=== PATIENT | female | born 1950 | race Caucasian/White ===

== ENCOUNTER 2016-12-23 11:29 | Emergency (ER) | payer OTHER ==
[2016-12-23 11:53] VITALS: BP 141/66; PULSE 69; TEMP 97.8; BMI 28.9
[2016-12-23 12:24] LABS: URINE APPEARANCE Clear; URINE BILIRUBIN Negative (NEGATIVE); URINE BLOOD Negative (NEGATIVE); URINE GLUCOSE (UA) 2+ (NEGATIVE); URINE KETONE Negative (NEGATIVE); URINE LEUK ESTERASE Trace (NEGATIVE); URINE NITRITE Negative (NEGATIVE); URINE PROTEIN Negative (NEGATIVE); URINE UROBILINOGEN 0.2 E.U/dl (0.2-1.0)
[2016-12-23 12:25] LABS: URINE COLOR YELLOW
--- NOTE | 2016-12-23 12:47 | PDOC ---
History of Present Illness - General Chief Complaint: Vaginal Sxs Stated Complaint: VAGINAL PAIN Time Seen by Provider: 12/23/16 12:28 - History of Present Illness Initial Comments: 12/23/16 13:09 Complaint: Burning in the vagina History of present illness: Patient is an elderly female who speaks only Montserratian , communication was through her son, assisted by telegraph office telephone clerk in the emergency room. She is complaining of burning in the vaginal area, constant, not related to urination, with no vaginal bleeding, slight amount of whitish discharge. Review of systems: Denies abdominal or pelvic pain, chest pain, shortness of breath, nausea, vomiting, constipation, diarrhea, fever or chills, visual or focal neurologic symptoms, unsteadiness of gait. Past medical history: Total abdominal hysterectomy approximately 4 months ago, family is uncertain of the reasons for the surgery, without apparent complication. Insulin-dependent diabetes without serious prior complications, elevated cholesterol, GERD. Patient has an ELECTRONICS SUPERVISOR physician whom she sees and with whom she could not obtain an appointment Social history: Patient lives with family, cares for herself, physically active and without disability, no tobacco alcohol or nonprescription drugs Family history: Reviewed and noncontributory including early coronary artery disease, cancer Physical exam: Alert and oriented 3, well-developed well-nourished, no acute distress, cheerful and cooperative Afebrile, vital signs normal HEENT clear Neck supple without bruit mass or nodes Chest clear CV regular without murmur or gallop Abdomen nondistended, bowel sounds normal. Soft without mass tenderness organomegaly. No pelvic tenderness to deep palpation. Vaginal exam: External genitalia normal. Erythema of the vulva is present. The vulva and vaginal mucosa is dry and irritated without specific lesions. There is moderate white discharge suggestive of jesika. No cervical os is present. There are no discrete lesions or mass. Bimanual examination shows no mass or tenderness. Uterus/ovaries were not palpable. 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 Close follow-up with ELECTRONICS SUPERVISOR physician. Patient fully ambulatory and in no significant pain or other distress upon discharge with her family to follow-up as directed Past History - Past Medical History Allergies/Adverse Reactions: Allergies Allergy/AdvReac Type Severity Reaction Status Date / Time No Known Allergies Allergy Verified 12/23/16 11:53 Home Medications: Ambulatory Orders Metformin HCl 500 mg PO BID 06/07/15 Pravastatin Sodium [Pravachol -] 80 mg PO HS 06/07/15 Sertraline HCl [Zoloft -] 25 mg PO DAILY 06/07/15 Vitamin B Complex 1 each PO DAILY 06/07/15 Insulin Detemir [Levemir Flextouch] 20 unit SQ DAILY 01/14/16 Aspirin [Aspirin EC] 81 mg PO DAILY 04/21/16 Calcium Carbonate/Vitamin D3 [Calcium 500 + Vit D Caplet] 1 each PO DAILY Cholecalciferol (Vitamin D3) [Vitamin D3] 2,000 unit PO DAILY 04/21/16 Omeprazole [Prilosec] 40 mg PO DAILY 04/21/16 Estrogens,Conjugated [Premarin Vaginal Cream -] 1 applic VG ASDIR #1 tube Terconazole [Terazol 7] 1 applic VG HS #1 cream.appl 12/23/16 Diabetes: Yes (insulin-dependent) HTN: Yes Hypercholesterolemia: Yes Psychiatric Problems: Yes (DEPRESSION) - Surgical History Orthopedic Surgery: Yes (B/L TOTAL KNEE REPLACEMENT) - Reproductive History Is Patient Now?: No - Immunization History Td Vaccination: Yes Immunization Up to Date: No - Psycho/Social/Smoking Cessation Hx Anxiety: No Suicidal Ideation: No Smoking Status: No Smoking History: Never smoked Have you smoked in the past 12 months: No Number of Cigarettes Smoked Daily: 0 Information on smoking cessation initiated: No Hx Alcohol Use: No Drug/Substance Use Hx: No Substance Use Type: None Hx Substance Use Treatment: No Abd/GI Specific PMHX - Complaint Specific PMHX GERD: Yes GI Ulcer Disease: No *Physical Exam - Vital Signs Last Vital Signs Temp Pulse Resp BP Pulse Ox 97.8 F 69 20 141/66 100 12/23/16 11:30 12/23/16 11:30 12/23/16 11:30 12/23/16 11:30 12/23/16 11:30 ED Treatment Course - ADDITIONAL ORDERS Additional order review: Laboratory Results 12/23/16 12:19 Urine Color Yellow Urine Appearance Clear Urine pH 7.0 Ur Specific [place] 1.015 Urine Protein Negative Urine Glucose (UA) 2+ H Urine Ketones Negative Urine Blood Negative Urine Nitrite Negative Urine Bilirubin Negative Urine Urobilinogen 0.2 e.u/dl Ur Leukocyte Esterase Trace *DC/Admit/Observation/Transfer Diagnosis at time of Disposition: Vaginitis, atrophic, Vaginitis due to Jesika - Discharge Dispostion Disposition: HOME Condition at time of disposition: Stable Admit: No - Prescriptions Prescriptions: Estrogens,Conjugated [Premarin Vaginal Cream -] 1 applic VG ASDIR #1 tube Terconazole [Terazol 7] 1 applic VG HS #1 cream.appl - Referrals Referrals: Dexter Ayala MD [Staff Physician] - 1 week - Patient Instructions Printed Discharge Instructions: Atrophic Vaginitis Additional Instructions: you must see plug overwrap machine tender doctor to discuss and monitor hormone treatment to avoid possible serious side effects including cancer
== END 2016-12-23 13:34 | disposition home or self-care (01) ==
LOC: FER 11:29
DX: N95.2 Postmenopausal atrophic vaginitis (principal); B37.3 Candidiasis of vulva and vagina; I10 Essential (primary) hypertension; E11.9 Type 2 diabetes mellitus without complications; Z79.4 Long term (current) use of insulin; E78.00 Pure hypercholesterolemia, unspecified; F32.9 Major depressive disorder, single episode, unspecified
CPT/HCPCS: 81003; 99282-25

== ENCOUNTER 2017-03-14 23:24 | Emergency (ER) | payer OTHER ==
--- NOTE | 2017-03-14 23:31 | PDOC ---
History of Present Illness - General Stated Complaint: vaginal bleeding x1 day Time Seen by Provider: 03/14/17 23:30 History Source: Patient Exam Limitations: No Limitations - History of Present Illness Initial Comments: 03/14/17 23:49 This is a 66-year-old female comes in with her family for evaluation of no vaginal bleeding 1 day. Patient has status post hysterectomy 7 months ago. Patient was told by her senior outside sales representative she needs to use a hormonal cream vaginally because her vaginal tissues or so dry and friable. Patient had been putting the cream on a he's a paper and trying to inserted into her vagina and as a result she noticed some vaginal bleeding. Patient said that the opening to the vaginal area is painful. She denies any fevers or chills. She denies any bad odor. She denies any other symptoms. PAST MEDICAL HISTORY: no significant history PAST SURGICAL HISTORY: no significant history FAMILY HISTORY: no pertinant history SOCIAL HISTORY: Pt lives with family and is employed. MEDICATIONS: reviewed ALLERGIES: As per nursing notes Review of Systems General: No fevers or chills, no weakness, no weight loss HEENT: No change in vision. No sore throat,. No ear pain CardioVascular: No chest pain or shortness of breath Respiratory:No cough, or wheezing. Gastrointestinal: no nausea, vomitting, diarrhea or constipation, No rectal bleeding Genitourinary: No dysuria, hematuria, or frequency Musculoskeletal: No joint or muscle pain or swelling Neurologic: No headache, vertigo, dizziness or loss of consciousness Psychiatric: nor depression Skin: No rashes or easy bruising Endocrine: no increased thirst or abnormal weight change Allergic: no skin or latex allergy All other systems reviewed and normal Exam: General: Well-nourished well-developed individual, no acute distress currently back abdomen: Soft nontender normal bowel sounds exam: There is excoriations and abrasions of the introitus to the vaginal vault. There is a small amount of bleeding from the abrasions. Extremities: Warm, dry, no cyanosis, clubbing, or edema Skin: No rashes Neuro: Alert and oriented x3, nonfocal exam, grossly intact, normal gait Psych: Normal mood and affect Assessment and plan: This is a 66-year-old female who comes in complaining of vaginal bleeding 1 day. Patient has been using a rough piece of paper to try to insert some hormonal cream into her vaginal area. The result of this is that patient has created vaginal trauma with some abrasions and bleeding of the introitus area. Patient was advised to use a glove to insert the vaginal cream and to be extra gentle as her vaginal tissues are very fragile and friable. Patient will follow-up with her senior outside sales representative if not improved in 3-4 days. Past History - Past Medical History Allergies/Adverse Reactions: Allergies Allergy/AdvReac Type Severity Reaction Status Date / Time No Known Allergies Allergy Verified 12/23/16 11:53 Home Medications: Ambulatory Orders Metformin HCl 500 mg PO BID 06/07/15 Pravastatin Sodium [Pravachol -] 80 mg PO HS 06/07/15 Sertraline HCl [Zoloft -] 25 mg PO DAILY 06/07/15 Insulin Detemir [Levemir Flextouch] 20 unit SQ DAILY 01/14/16 Aspirin [Aspirin EC] 81 mg PO DAILY 04/21/16 Calcium Carbonate/Vitamin D3 [Calcium 500 + Vit D Caplet] 1 each PO DAILY Omeprazole [Prilosec] 40 mg PO DAILY 04/21/16 Estrogens,Conjugated [Premarin Vaginal Cream -] 1 applic VG ASDIR #1 tube Solifenacin Succinate [Vesicare -] 5 mg PO DAILY 03/14/17 Diabetes: Yes (insulin-dependent) HTN: Yes Hypercholesterolemia: Yes Psychiatric Problems: Yes (DEPRESSION) - Surgical History Orthopedic Surgery: Yes (B/L TOTAL KNEE REPLACEMENT) - Immunization History Td Vaccination: Yes Immunization Up to Date: No - Psycho/Social/Smoking Cessation Hx Anxiety: No Suicidal Ideation: No Smoking Status: No Smoking History: Never smoked Have you smoked in the past 12 months: No Number of Cigarettes Smoked Daily: 0 Hx Alcohol Use: No Drug/Substance Use Hx: No Substance Use Type: None Hx Substance Use Treatment: No Abd/GI Specific PMHX - Complaint Specific PMHX GERD: Yes GI Ulcer Disease: No *DC/Admit/Observation/Transfer Diagnosis at time of Disposition: Vaginitis, atrophic Vaginal abrasion Qualifiers: Encounter type: initial encounter Qualified Code(s): S30.814A - Abrasion of vagina and vulva, initial encounter - Discharge Dispostion Disposition: HOME Admit: No - Patient Instructions Additional Instructions: Use a glove on your finger when you are putting in the vaginal cream do not use a paper or anything that is rough. If you find that the cream is irritating to the area where the abrasions are stop using the cream for 3-4 days to allow that area to heal and then restart the cream. Follow-up with your OB in 4-5 days if not improved. Return to the emergency department immediately with ANY new, persistent or worsening symptoms. Continue any medications as previously prescribed by your physician. You should follow up with your primary doctor as soon as possible regarding today's emergency department visit. . Please make sure your doctor reviews the results of your emergency evaluation. Thank you for coming to the Emergency Department today for your care. It was a pleasure to see you today. Please note that your evaluation is INCOMPLETE until you follow-up with your doctor.
[2017-03-14 23:36] VITALS: BP 137/67; PULSE 68; TEMP 98.6; BMI 28.1
== END 2017-03-14 23:57 | disposition home or self-care (01) ==
LOC: FER 23:24
DX: N95.2 Postmenopausal atrophic vaginitis (principal); S30.814A Abrasion of vagina and vulva, initial encounter; E11.9 Type 2 diabetes mellitus without complications; I10 Essential (primary) hypertension; E78.00 Pure hypercholesterolemia, unspecified; F32.9 Major depressive disorder, single episode, unspecified; Z96.653 Presence of artificial knee joint, bilateral; Z79.4 Long term (current) use of insulin
CPT/HCPCS: 99282-25

== ENCOUNTER 2017-08-25 00:51 | Emergency (ER) | payer OTHER ==
[2017-08-25 01:02] VITALS: BP 143/79; PULSE 70; TEMP 98.1; BMI 28.5
[2017-08-25] MEDS ORDERED: MECLIZINE HCL 25 MG TABLET (FP) PO ONE (02:12)
--- NOTE | 2017-08-25 02:13 | PDOC ---
History of Present Illness - General Chief Complaint: Pain, Acute Stated Complaint: NAUSEA, HEADACHE X 2 DAYS Time Seen by Provider: 08/25/17 00:59 - History of Present Illness Initial Comments: This 66-year-old woman, Fijian speaking only with a history of DM/ hyperlipidemia/hypertension presents with her son (implant polisher) having a 2 day history of intermittent vertigo/nausea/generalized headache. Patient states that there is some increase in vertigo with change in position of her head. No previous history of these symptoms. She has not taken any medication for her headache. She denies any trauma to her head prior to onset of symptoms. She has not had any fever/chills or upper respiratory symptoms recently. Although the patient has not vomited, her appetite is decreased secondary to the nausea she feels with a head spinning sensation. No history of CVA or TIA. She is currently taking all her medications including her aspirin 81 mg, diabetes medications and antihypertensive meds. She has not had any difficulty finding words/slurred speech; no difficulty with balance or extremity weakness. No facial weakness reported. Past History - Past Medical History Allergies/Adverse Reactions: Allergies Allergy/AdvReac Type Severity Reaction Status Date / Time No Known Allergies Allergy Verified 08/25/17 00:52 Home Medications: Ambulatory Orders Aspirin [ASA -] 81 mg PO DAILY 08/25/17 Calcium 500 mg PO DAILY 08/25/17 Linaclotide [Linzess] 145 mcg PO DAILY 08/25/17 Lisinopril 5 mg PO DAILY 08/25/17 Meclizine HCl [Antivert -] 25 mg PO TID PRN #10 tablet 08/25/17 Metformin HCl 850 mg PO BID 08/25/17 Omeprazole 40 mg PO DAILY 08/25/17 Pravastatin Sodium [Pravachol (Nf)] 40 mg PO HS 08/25/17 Sitagliptin Phosphate [Januvia] 100 mg PO DAILY 08/25/17 COPD: No Diabetes: Yes (insulin-dependent) HTN: Yes Hypercholesterolemia: Yes Psychiatric Problems: Yes (DEPRESSION) - Surgical History Orthopedic Surgery: Yes (B/L TOTAL KNEE REPLACEMENT) - Immunization History Td Vaccination: Yes Immunization Up to Date: No - Suicide/Smoking/Psychosocial Hx Smoking Status: No Smoking History: Never smoked Have you smoked in the past 12 months: No Number of Cigarettes Smoked Daily: 0 Information on smoking cessation initiated: No Hx Alcohol Use: No Drug/Substance Use Hx: No Substance Use Type: None Hx Substance Use Treatment: No Neuro Specific PMHX - Complaint Specific PMHX Glaucoma: No Review of Systems - Review of Systems Able to Perform ROS?: Yes Comments:: 12 point review of systems is negative except for what is noted in the history of present illness *Physical Exam - Vital Signs Last Vital Signs Temp Pulse Resp BP Pulse Ox 98.1 F 70 16 143/79 99 08/25/17 00:59 08/25/17 00:59 08/25/17 00:59 08/25/17 00:59 08/25/17 00:59 - Physical Exam Comments: GENERAL: Elderly female, speaking clearly to her family in Fijian, in no acute distress HEAD: Normal with no signs of trauma. EYES: PERRLA, pupils 3 mm equal and reactive to light EOMI, sclera anicteric, conjunctiva clear. ENT: Ears normal, nares patent, oropharynx clear without exudates. Moist mucous membranes. NECK: Normal range of motion, supple without lymphadenopathy, JVD, or masses. LUNGS: Breath sounds equal, clear to auscultation bilaterally. No wheezes, and no crackles. HEART:Regular rate and rhythm, normal S1 and S2 without murmur, rub or gallop. ABDOMEN:.normal bowel sounds No guarding,tenderness or rebound.No masses No distention. EXTREMITIES: Normal range of motion, no edema. No clubbing or cyanosis. No erythema, or tenderness. NEUROLOGICAL: Cranial nerves II through XII grossly intact. Normal speech. No pronator drift. Gait normal MUSCULOSKELETAL: Back non-tender to palpation, no CVA tenderness SKIN: Warm, Dry, normal turgor, no rashes or lesions noted. Progress Note - Progress Note Progress Note: Although no clear abnormal nystagmus present, meclizine 25 mg will be administered because of the patient's history of increase in vertigo with change in position of her head. Patient reports some relief in headache and vertigo after meclizine. Medical Decision Making - Medical Decision Making Noncontrast head CT performed to evaluate for acute intracranial process; patient is a risk for cerebrovascular disease because of her history of hypertension/diabetes and hyperlipidemia. Noncontrast head CT shows no acute bleed/mass or CVA. Patient feels significantly better and is eager to be discharged. Although this may be posterior circulation related vertigo, she is currently taking aspirin 81 mg daily. She should continue to take this medication and she has been advised to do that. She should also continue take all her other medications as prescribed. Meclizine 25 mg up to 3 times a day can be taken as needed for the vertigo. She should return to emergency room if she has persistent, severe vertigo or develops vomiting. Meanwhile, she should plan on following up with her general medical doctor within the next 1-2 days *DC/Admit/Observation/Transfer Diagnosis at time of Disposition: Benign paroxysmal positional vertigo Qualifiers: Laterality: unspecified laterality Qualified Code(s): H81.10 - Benign paroxysmal vertigo, unspecified ear - Discharge Dispostion Disposition: HOME Condition at time of disposition: Stable - Prescriptions Prescriptions: Meclizine HCl [Antivert -] 25 mg PO TID PRN #10 tablet PRN Reason: Vertigo - Referrals - Patient Instructions Printed Discharge Instructions: DI for Vertigo Additional Instructions: Meclizine 25 mg up to 3 times a day as needed for vertigo Can take Tylenol as needed for headache Follow-up with your general medical doctor within the next 48 hours Return to emergency room if you have persistent severe head spinning or nausea/ vomiting Print Language: CENTRAL AFRICAN - Post Discharge Activity
[2017-08-25] MEDS ORDERED: MECLIZINE HCL 25 MG TABLET (FP) ONE (02:15)
== END 2017-08-25 05:09 | disposition home or self-care (01) ==
LOC: FER 00:51
DX: H81.10 Benign paroxysmal vertigo, unspecified ear (principal); E11.9 Type 2 diabetes mellitus without complications; E78.5 Hyperlipidemia, unspecified; I10 Essential (primary) hypertension
CPT/HCPCS: 70450-TC; 99281-25

== ENCOUNTER 2018-05-31 21:21 | Emergency (ER) | payer OTHER ==
[2018-05-31 21:26] VITALS: BP 148/74; PULSE 76; TEMP 98.1; BMI 31.2
[2018-05-31] MEDS ORDERED: ALBUTEROL SO4 2.5/IPRATROPIUM 0.5 INH SOL 3 ML VIAL.NEB. NEB ONE ×2 (21:43→22:11)
--- NOTE | 2018-05-31 21:57 | PDOC ---
History of Present Illness - History of Present Illness Initial Comments: 05/31/18 21:58 The patient is a 67 year old female with past medical history of hypertension and diabetes who presents to the ED with complaints of three days of dry cough and nasal congestion. The patient also reports a sore throat due to her post nasal drip. She reports associated tactile fever but denies any chills or weakness. Denies any sick contacts or recent travel. <Rosie Larios - Last Filed: 05/31/18 21:58> - General History Source: Patient Exam Limitations: No Limitations <John Fitzgerald - Last Filed: 05/31/18 22:43> - General Chief Complaint: Respiratory Stated Complaint: COUGH, GENERALIZED BODY ACHES Time Seen by Provider: 05/31/18 21:28 Past History <Rosie Larios - Last Filed: 05/31/18 21:58> - Past Medical History COPD: No Diabetes: Yes (insulin-dependent) HTN: Yes Hypercholesterolemia: Yes Psychiatric Problems: Yes (DEPRESSION) - Surgical History Orthopedic Surgery: Yes (B/L TOTAL KNEE REPLACEMENT) - Immunization History Td Vaccination: Yes Immunization Up to Date: No - Suicide/Smoking/Psychosocial Hx Smoking Status: No Smoking History: Never smoked Have you smoked in the past 12 months: No Number of Cigarettes Smoked Daily: 0 Information on smoking cessation initiated: No Hx Alcohol Use: No Drug/Substance Use Hx: No Substance Use Type: None Hx Substance Use Treatment: No <John Fitzgerald - Last Filed: 05/31/18 22:43> - Past Medical History Allergies/Adverse Reactions: Allergies Allergy/AdvReac Type Severity Reaction Status Date / Time No Known Allergies Allergy Verified 08/25/17 00:52 Home Medications: Ambulatory Orders Aspirin [ASA -] 81 mg PO DAILY 08/25/17 Calcium 500 mg PO DAILY 08/25/17 Linaclotide [Linzess] 145 mcg PO DAILY 08/25/17 Lisinopril 5 mg PO DAILY 08/25/17 Meclizine HCl [Antivert -] 25 mg PO TID PRN #10 tablet 08/25/17 Metformin HCl 850 mg PO BID 08/25/17 Omeprazole 40 mg PO DAILY 08/25/17 Pravastatin Sodium [Pravachol (Nf)] 40 mg PO HS 08/25/17 Sitagliptin Phosphate [Januvia] 100 mg PO DAILY 08/25/17 Albuterol Sulfate Inhaler - [Ventolin HFA Inhaler -] 2 puff IH Q4H PRN #1 inhaler 05/31/18 Azithromycin 250 mg PO DAILY #4 tablet 05/31/18 Review of Systems - Review of Systems Able to Perform ROS?: Yes Comments:: 05/31/18 21:58 GENERAL/CONSTITUTIONAL: (+) fever. No chills. No weakness. HEAD, EYES, EARS, NOSE AND THROAT:(+) sore throat. No change in vision. No ear pain or discharge. CARDIOVASCULAR: No chest pain or shortness of breath. RESPIRATORY: (+) cough. No wheezing, or hemoptysis. GASTROINTESTINAL: No nausea, vomiting, diarrhea or constipation. GENITOURINARY: No dysuria, frequency, or change in urination. MUSCULOSKELETAL: No joint or muscle swelling or pain. No neck or back pain. SKIN: No rash NEUROLOGIC: No headache, vertigo, loss of consciousness, or change in strength/ sensation. ENDOCRINE: No increased thirst. No abnormal weight change. HEMATOLOGIC/LYMPHATIC: No anemia, easy bleeding, or history of blood clots. ALLERGIC/IMMUNOLOGIC: No hives or skin allergy. All Other Systems: Reviewed and Negative <Rosie Larios - Last Filed: 05/31/18 21:58> *Physical Exam - Vital Signs Last Vital Signs Temp Pulse Resp BP Pulse Ox 98.1 F 76 18 148/74 99 05/31/18 21:23 05/31/18 21:23 05/31/18 21:23 05/31/18 21:23 05/31/18 21:23 - Physical Exam Comments: 05/31/18 22:00 GENERAL: Awake, alert, and fully oriented, in no acute distress HEAD: No signs of trauma EYES: PERRLA, EOMI, sclera anicteric, conjunctiva clear ENT: Auricles normal inspection, hearing grossly normal, nares patent, oropharynx clear without exudates. Moist mucosa NECK: Normal ROM, supple, no lymphadenopathy, JVD, or masses LUNGS: Breath sounds equal, clear to auscultation bilaterally. No wheezes, and no crackles HEART: Regular rate and rhythm, normal S1 and S2, no murmurs, rubs or gallops EXTREMITIES: Normal range of motion, no edema. No clubbing or cyanosis. No cords, erythema, or tenderness NEUROLOGICAL: Cranial nerves II through XII grossly intact. Normal speech, normal gait SKIN: Warm, Dry, normal turgor, no rashes <Rosie Larios - Last Filed: 05/31/18 21:58> - Vital Signs Last Vital Signs Temp Pulse Resp BP Pulse Ox 98.1 F 76 18 148/74 99 05/31/18 21:23 05/31/18 21:23 05/31/18 21:23 05/31/18 21:23 05/31/18 21:23 <John Fitzgerald - Last Filed: 05/31/18 22:43> ED Treatment Course - LABORATORY CBC & Chemistry Diagram: 05/31/18 21:45 05/31/18 21:45 <Rosie Larios - Last Filed: 05/31/18 21:58> - LABORATORY CBC & Chemistry Diagram: 05/31/18 21:45 05/31/18 21:45 - RADIOLOGY Radiology Studies Ordered: Category Date Time Status CHEST PA & LAT [RAD] Stat Radiology 05/31/18 21:43 Ordered <John Fitzgerald - Last Filed: 05/31/18 22:43> Medical Decision Making - Medical Decision Making 05/31/18 21:50 A portion of this note was documented by scribe services under my direction. I have reviewed the details of the note, within reason, and agree with the documentation with the following case summary and management plan written by me. Patient treated in the ED. Nursing notes are reviewed and incorporated into the medical decision-making. Vital signs reviewed. Peripheral IV access obtained by the nurse, laboratory studies are drawn and sent, reviewed and interpreted by myself. Vital Signs Temp Pulse Resp BP Pulse Ox 98.1 F 76 18 148/74 99 05/31/18 21:23 05/31/18 21:23 05/31/18 21:23 05/31/18 21:23 05/31/18 21:23 67-year-old female patient with history of hypertension, diabetes, hyperlipidemia presents with coughing, nonproductive for 3 days. Patient reports jealous body aches, tactile fevers and persistent coughing. Patient denies smoking history. Denies sick contacts or recent travels. Denies chest pain or shortness of breath. Came into the ER for further evaluation. Differential includes viral syndrome, bronchitis, pneumonia. We'll obtain a chest x-ray, labs and reassess. Trial duonebs. 05/31/18 22:39 Chest xray reviewed by me, pending official radiology read. No infiltrates. CBC, BMP 05/31/18 21:45 05/31/18 21:45 CMP Sodium 132 mmol/L (136-145) L 05/31/18 21:45 Potassium 4.9 mmol/L (3.5-5.1) 05/31/18 21:45 Chloride 103 mmol/L (98-107) 05/31/18 21:45 Carbon Dioxide 23 mmol/L (22-28) 05/31/18 21:45 Anion Gap 6 MMOL/L (8-16) L 05/31/18 21:45 BUN 24 mg/dl (7-18) H 05/31/18 21:45 Creatinine 0.8 mg/dl (0.6-1.3) 05/31/18 21:45 Creat Clearance w eGFR > 60 (>60) 05/31/18 21:45 Random Glucose 298 mg/dl (74-106) H D 05/31/18 21:45 Calcium 8.9 mg/dl (8.4-10.2) 05/31/18 21:45 Total Bilirubin 0.6 mg/dl (0.2-1.0) 05/31/18 21:45 AST 23 U/L (10-42) 05/31/18 21:45 ALT 15 U/L (10-40) D 05/31/18 21:45 Alkaline Phosphatase 86 U/L (32-92) 05/31/18 21:45 Total Protein 6.8 g/dl (6.4-8.3) 05/31/18 21:45 Albumin 3.7 g/dl (3.5-5.0) 05/31/18 21:45 The patient feels better with the duoneb. I will treat the patient as a bronchitis, given her frequent coughing and hx of diabetes. Will write a prescription of azithromycin and albuterol. The patient and family feels comfortable taking the patient home. <John Fitzgerald - Last Filed: 05/31/18 22:43> *DC/Admit/Observation/Transfer - Attestations Scribe Attestion: 05/31/18 22:02 Documentation prepared by Rosie Larios, acting as manager medical affairs for John Fitzgerald MD <Rosie Larios - Last Filed: 05/31/18 21:58> - Discharge Dispostion Decision to Admit order: No <John Fitzgerald - Last Filed: 05/31/18 22:43> Diagnosis at time of Disposition: Bronchitis - Discharge Dispostion Disposition: HOME Condition at time of disposition: Stable - Prescriptions Prescriptions: Albuterol Sulfate Inhaler - [Ventolin HFA Inhaler -] 2 puff IH Q4H PRN #1 inhaler PRN Reason: Cough Azithromycin 250 mg PO DAILY #4 tablet - Patient Instructions Printed Discharge Instructions: DI for Acute Bronchitis Additional Instructions: Your workup shows no evidence of pneumonia. For cough, take 2 puffs of albuterol every 4 hours as needed. Please take the antibiotics (azithromycin) as prescribed. Please finish the course. If you notice that you are feeling worse, such as difficulty breathing, high fevers greater than 102 degrees, or chest pain, please return to the ER. It may take several days before you feel better. Follow up with your doctor this week. Call to schedule an appointment. Print Language: SERBIAN
[2018-05-31 22:08] LABS: BASO % 0.7 % (0-2.0); EOS % 2.5 % (0-4.5); HEMATOCRIT 36.2 % (32.4-45.2); LYMPH % 21.7 % (8-40); MCHC 33.1 g/dl (32.0-36.0); MEAN CELL VOLUME 81.6 fl (80-96); MEAN PLT VOLUME 8.6 fl (7.5-11.1); MONO % 9.5 % (3.8-10.2); NEUT % 65.6 % (42.8-82.8); PLATELET COUNT 211 K/MM3 (134-434); RBC 4.44 M/mm3 (3.60-5.2); RDW 13.2 % (11.6-15.6); WHITE BLOOD COUNT 7.3 K/mm3 (4.0-10.8)
[2018-05-31 22:13] LABS: ALBUMIN 3.7 g/dl (3.5-5.0); ALK PHOS 86 U/L (32-92); ANION GAP 6 MMOL/L (8-16); BILIRUBIN,TOTAL 0.6 mg/dl (0.2-1.0); BLOOD UREA NITROGEN 24 mg/dl (7-18); CALCIUM 8.9 mg/dl (8.4-10.2); CHLORIDE 103 mmol/L (98-107); CO2 23 mmol/L (22-28); CREATININE 0.8 mg/dl (0.6-1.3); GLUCOSE,RANDOM 298 mg/dl (74-106); POTASSIUM 4.9 mmol/L (3.5-5.1); SGOT/AST 23 U/L (10-42); SGPT/ALT 15 U/L (10-40); SODIUM 132 mmol/L (136-145); TOT PROT 6.8 g/dl (6.4-8.3)
[2018-05-31] MEDS ORDERED: AZITHROMYCIN 250 MG TABLET ONE (22:42)
[2018-05-31] MEDS ORDERED: AZITHROMYCIN 250 MG TABLET PO ONE (22:42)
== END 2018-05-31 22:46 | disposition home or self-care (01) ==
LOC: FER 21:21
PROC: 3E0F7GC Introduction of Other Therapeutic Substance into Respiratory Tract, Via Natural or Artificial Opening (ICD-10-PCS; principal; 2018-05-31)
DX: J40 Bronchitis, not specified as acute or chronic (principal)
CPT/HCPCS: 36415; 71046-TC-FY; 80053; 85025; 99281-25; J7620

== ENCOUNTER 2018-06-17 19:37 | Emergency (ER) | payer OTHER ==
[2018-06-17 19:44] VITALS: BP 143/87; BMI 28.3
--- NOTE | 2018-06-17 21:18 | PDOC ---
History of Present Illness - General History Source: Patient, Family (Son) Exam Limitations: No Limitations - History of Present Illness Initial Comments: 06/17/18 21:18 The patient is a 67 year old female, with a significant past medical history of HTN, diabetes, HLD and depression, who presents to the ED complaining of abdominal pain for the past week. She describes her pain as localized in the lower abdomen, intermittent in nature, 5/10 in severity. She notes that she feels rectal urgency, going to the bathroom roughly 20 times today. She denies any blood in the stool or tarry looking stools. She notes that her appetite has been decreased. The patient denies chest pain, shortness of breath, headache and dizziness. Denies fever, chills, nausea, vomiting, diarrhea or constipation. Denies dysuria , frequency, urgency and hematuria. Allergies: None Past surgical history: B/L TOTAL KNEE REPLACEMENT Social History: No alcohol, tobacco or drug use reported <Moshe Steele - Last Filed: 06/17/18 21:18> <Melida Lockett - Last Filed: 06/18/18 04:27> - General Chief Complaint: Pain Stated Complaint: ABD PAIN X1 WEEK Time Seen by Provider: 06/17/18 19:39 Past History <Moshe Steele - Last Filed: 06/17/18 21:18> - Past Medical History COPD: No Diabetes: Yes (insulin-dependent) HTN: Yes Hypercholesterolemia: Yes Psychiatric Problems: Yes (DEPRESSION) - Surgical History Orthopedic Surgery: Yes (B/L TOTAL KNEE REPLACEMENT) - Immunization History Td Vaccination: Yes Immunization Up to Date: No - Suicide/Smoking/Psychosocial Hx Smoking Status: No Smoking History: Never smoked Have you smoked in the past 12 months: No Number of Cigarettes Smoked Daily: 0 Hx Alcohol Use: No Drug/Substance Use Hx: No Substance Use Type: None Hx Substance Use Treatment: No <Melida Lockett - Last Filed: 06/18/18 04:27> - Past Medical History Allergies/Adverse Reactions: Allergies Allergy/AdvReac Type Severity Reaction Status Date / Time No Known Allergies Allergy Verified 08/25/17 00:52 Home Medications: Ambulatory Orders Aspirin [ASA -] 81 mg PO DAILY 08/25/17 Calcium 500 mg PO DAILY 08/25/17 Linaclotide [Linzess] 145 mcg PO DAILY 08/25/17 Lisinopril 5 mg PO DAILY 08/25/17 Meclizine HCl [Antivert -] 25 mg PO TID PRN #10 tablet 08/25/17 Metformin HCl 850 mg PO BID 08/25/17 Omeprazole 40 mg PO DAILY 08/25/17 Pravastatin Sodium [Pravachol (Nf)] 40 mg PO HS 08/25/17 Sitagliptin Phosphate [Januvia] 100 mg PO DAILY 08/25/17 Albuterol Sulfate Inhaler - [Ventolin HFA Inhaler -] 2 puff IH Q4H PRN #1 inhaler 05/31/18 Azithromycin 250 mg PO DAILY #4 tablet 05/31/18 Abd/GI Specific PMHX - Complaint Specific PMHX GERD: Yes GI Ulcer Disease: No <Melida Lockett - Last Filed: 06/18/18 04:27> Review of Systems - Review of Systems Able to Perform ROS?: Yes Comments:: 06/17/18 21:18 GENERAL/CONSTITUTIONAL: No fever or chills. No weakness. HEAD, EYES, EARS, NOSE AND THROAT: No change in vision. No ear pain or discharge. No sore throat. GASTROINTESTINAL: (+) Abdominal pain. No nausea, vomiting, diarrhea or constipation. GENITOURINARY: No dysuria, frequency, or change in urination. CARDIOVASCULAR: No chest pain or shortness of breath. RESPIRATORY: No cough, wheezing, or hemoptysis. MUSCULOSKELETAL: No joint or muscle swelling or pain. No neck or back pain. SKIN: No rash NEUROLOGIC: No headache, vertigo, loss of consciousness, or change in strength/ sensation. ENDOCRINE: No increased thirst. No abnormal weight change. HEMATOLOGIC/LYMPHATIC: No anemia, easy bleeding, or history of blood clots. ALLERGIC/IMMUNOLOGIC: No hives or skin allergy. <Moshe Steele - Last Filed: 06/17/18 21:18> *Physical Exam - Vital Signs Last Vital Signs Temp Pulse Resp BP Pulse Ox 98.5 F 77 16 143/87 98 06/17/18 19:38 06/17/18 19:38 06/17/18 19:38 06/17/18 19:38 06/17/18 19:38 - Physical Exam Comments: 06/17/18 21:19 Constitutional: Awake, alert, oriented. No acute distress. Head: Normocephalic. Atraumatic Eyes: PERRL. EOMI. Conjunctivae are not pale. ENT: Mucous membranes are moist and intact. Posterior pharynx without exudates or erythema. Uvula midline. Neck: Supple. Full ROM. No lymphadenopathy. Cardiovascular: Regular rate. Regular rhythm. S1, S2 regular. Distal pulses are 2+ and symmetric. Pulmonary/Chest: No evidence of respiratory distress. Clear to auscultation bilaterally No wheezing, rales or rhonchi. Abdominal: (+) Moderate RLQ tenderness. Soft and non-distended. No rebound, guarding or rigidity. No organomegaly. No palpable masses. Good bowel sounds. Back: No CVA tenderness. Musculoskeletal: No edema. No cyanosis. No clubbing. Full range of motion in all extremities. Nocalf tenderness. Radial/pedal pulses are intact and 2+ bilaterally Skin: Skin is warm and dry. No petechiae. No purpura. Neurological: Alert and oriented to person, place, and time. Cranial nerves II -XII are grossly intact. Normal speech. Strength is grossly symmetric. No sensory deficits. Psychiatric: Good eye contact. Normal interaction, affect and behavior. <Moshe Steele - Last Filed: 06/17/18 21:18> - Vital Signs Last Vital Signs Temp Pulse Resp BP Pulse Ox 98.5 F 77 16 143/87 98 06/17/18 19:38 06/17/18 19:38 06/17/18 19:38 06/17/18 19:38 06/17/18 19:38 <Melida Lockett - Last Filed: 06/18/18 04:27> ED Treatment Course - LABORATORY CBC & Chemistry Diagram: 06/17/18 21:25 06/17/18 21:25 <Melida Lockett - Last Filed: 06/18/18 04:27> Progress Note - Progress Note Progress Note: Documentation has been prepared under my direction and personally reviewed by me in its entirety. I attest that this documented accurately reflects all work, treatment, procedures and medical decision making performed by me. <Melida Lockett - Last Filed: 06/18/18 04:27> Medical Decision Making - Medical Decision Making As noted above, this 67-year-old woman, Yakut-speaking with interpretation by her family members presents with a one-week history of lower abdominal discomfort and frequent bowel movements. There has been no nausea/vomiting/ fever. Her appetite has been decreased during this time. She denies previous gastrointestinal issues. She does not think she has ever had colonoscopy or upper endoscopy. Exam as noted. Because of the patient's right lower quadrant tenderness, acute appendicitis ( although there are no associated symptoms typical of this) needs to be ruled out. CBC/chemistry profile performed. No significant abnormality seen. Abdominal/pelvic CT with IV contrast performed. preliminary interpretation by Imaging television news reporter: Bilateral renal scarring without stones or hydronephrosis. Mild pancreatic duct dilatation of uncertain etiology. Increase solid stool. No evidence of acute appendicitis. No evidence of colitis or proctitis. Results discussed with the patient and her family. Review of the patient's medication list revealed that Linzess is listed as a medication that she is taking. The patient could not confirm that this is true in the family also had no idea whether she was still taking this medication. It was discussed with them that this is a medication that increases bowel movements. They should review her medications with her PMD, . Meanwhile, patient should continue light diet and return to the ER if she has increasing pain or develops fever. Follow-up with Dr. Bartholomew should be within the next few days. They should call the office in the morning to arrange follow-up. <Melida Lockett - Last Filed: 06/18/18 04:27> *DC/Admit/Observation/Transfer - Attestations Scribe Attestion: 06/17/18 21:19 Documentation prepared by Moshe Steele, acting as medical facilities section director for Melida Lockett MD <Moshe Steele - Last Filed: 06/17/18 21:18> <Melida Lockett - Last Filed: 06/18/18 04:27> Diagnosis at time of Disposition: Bilateral lower abdominal cramping - Discharge Dispostion Disposition: HOME Condition at time of disposition: Stable - Referrals Referrals: Dejuan Bartholomew MD [Primary Care Provider] - Call tomorrow Marilyn Bullock DO [Staff Physician] - - Patient Instructions Printed Discharge Instructions: DI for Abdominal Pain-Adult Additional Instructions: Continue medications as prescribed Call tomorrow to arrange follow-up Follow-up with print shop stenographer (stomach doctor), within 1 week Return to ER if symptoms worsen - Post Discharge Activity
[2018-06-17] MEDS ORDERED: SODIUM CHLORIDE 1,000 ML IV STA (21:19)
[2018-06-17 21:44] LABS: BASO % 0.6 % (0-2.0); EOS % 1.7 % (0-4.5); HEMATOCRIT 34.5 % (32.4-45.2); HEMOGLOBIN 11.5 GM/dl (10.7-15.3); LYMPH % 33.5 % (8-40); MCH 26.6 pg (25.7-33.7); MCHC 33.2 g/dl (32.0-36.0); MEAN PLT VOLUME 8.6 fl (7.5-11.1); MONO % 8.8 % (3.8-10.2); NEUT % 55.4 % (42.8-82.8); PLATELET COUNT 223 K/MM3 (134-434); RBC 4.31 M/mm3 (3.60-5.2); RDW 12.9 % (11.6-15.6); WHITE BLOOD COUNT 7.9 K/mm3 (4.0-10.8)
[2018-06-17 21:48] LABS: URINE APPEARANCE Clear; URINE BACTERIA 2+ /hpf (NEGATIVE); URINE BILIRUBIN Negative (NEGATIVE); URINE COLOR Yellow; URINE GLUCOSE (UA) Negative (NEGATIVE); URINE KETONE Negative (NEGATIVE); URINE LEUK ESTERASE TRACE (NEGATIVE); URINE NITRITE Negative (NEGATIVE); URINE PROTEIN Negative (NEGATIVE); URINE RBC 0-2 /hpf (0-3); URINE UROBILINOGEN 0.2 (0.2-1.0)
[2018-06-17 22:01] LABS: INR 0.98 (0.82-1.09)
[2018-06-17 22:06] LABS: ALBUMIN 3.8 g/dl (3.5-5.0); ALK PHOS 69 U/L (32-92); ANION GAP 9 MMOL/L (8-16); BILIRUBIN,TOTAL 0.4 mg/dl (0.2-1.0); BLOOD UREA NITROGEN 17 mg/dl (7-18); CALCIUM 9.6 mg/dl (8.4-10.2); CHLORIDE 104 mmol/L (98-107); CO2 21 mmol/L (22-28); CREATININE 0.8 mg/dl (0.6-1.3); GLUCOSE,RANDOM 156 mg/dl (74-106); POTASSIUM 4.3 mmol/L (3.5-5.1); SGOT/AST 26 U/L (10-42); SGPT/ALT 20 U/L (10-40); SODIUM 134 mmol/L (136-145); TOT PROT 6.6 g/dl (6.4-8.3)
[2018-06-17 22:42] VITALS: PULSE 106; TEMP 99.7
== END 2018-06-18 01:57 | disposition home or self-care (01) ==
LOC: FER 19:37
PROC: 3E0337Z Introduction of Electrolytic and Water Balance Substance into Peripheral Vein, Percutaneous Approach (ICD-10-PCS; principal; 2018-06-17)
DX: R10.30 Lower abdominal pain, unspecified (principal); R10.2 Pelvic and perineal pain; I10 Essential (primary) hypertension; E11.9 Type 2 diabetes mellitus without complications; F32.9 Major depressive disorder, single episode, unspecified; E78.00 Pure hypercholesterolemia, unspecified
CPT/HCPCS: 36415; 74177-TC; 80053; 81003; 81015; 85025; 85610; 87086; 99282-25; J7030

== ENCOUNTER 2018-12-13 09:17 | Emergency (ER) | payer OTHER ==
--- NOTE | 2018-12-13 09:22 | PDOC ---
History of Present Illness - General Chief Complaint: Respiratory Stated Complaint: COUGH, BODY ACHES History Source: Patient Exam Limitations: No Limitations - History of Present Illness Initial Comments: 12/13/18 10:06 68y F pmhx of htn, hl, dm presents with complaint of cough, congestion, subjective fever/body aches since . states she was fine on thursday. denies any cp, reyes, sob, hemoptysis, leg swelling. no sick contacts or recent travel. deneis any back pain, abd pain, numbnestingling/weakness, dysuria, diarrhea. denies smoking Past History - Past Medical History Allergies/Adverse Reactions: Allergies Allergy/AdvReac Type Severity Reaction Status Date / Time No Known Allergies Allergy Verified 12/13/18 09:24 Home Medications: Ambulatory Orders Guaifenesin AC [Robitussin AC -] 5 ml PO TID PRN #120 ml MDD 20 12/13/18 Insulin Detemir [Levemir Flextouch] 20 unit SQ DAILY 12/13/18 Oseltamivir Phosphate [Tamiflu] 75 mg PO BID #10 capsule 12/13/18 COPD: No Diabetes: Yes (insulin-dependent) HTN: Yes Hypercholesterolemia: Yes Psychiatric Problems: Yes (DEPRESSION) - Surgical History Orthopedic Surgery: Yes (B/L TOTAL KNEE REPLACEMENT) - Immunization History Td Vaccination: Yes Immunization Up to Date: No - Suicide/Smoking/Psychosocial Hx Smoking Status: No Smoking History: Never smoked Have you smoked in the past 12 months: No Number of Cigarettes Smoked Daily: 0 Hx Alcohol Use: No Drug/Substance Use Hx: No Substance Use Type: None Hx Substance Use Treatment: No Respiratory Specific PMHX - Complaint Specific PMHX Angina: No Review of Systems - Review of Systems Able to Perform ROS?: Yes Comments:: 12/13/18 10:10 Constitutional - +subjective fever, body aches no reported Chills, HEENT: +nasal congestion,no reported vision changes, sore throat Respiratory: +cough, no reported sob, hemoptysis Cardiac: no reported chest pain, palpitations, light headedness, leg swelling Abd/GI: no reported abd pain, nausea, vomiting, blood per rectum, melena, diarrhea : no reported dysuria, frequency, discharge Musculskelatal - no reported back pain, joint swelling skin - no reported bruising, erythema, rash neurological: no reported headache, numbness, focal weakness, tingling, ataxia, hematologic: no reported easy bruising, easy bleeding *Physical Exam - Physical Exam Comments: 12/13/18 10:10 GENERAL: The patient is awake, alert, and fully oriented, Nontoxic - in no acute distress. Intermittent paroxysms of coughing HEAD: Normocephalic, atraumatic. EYES: extraocular movements intact, sclera anicteric, conjunctiva clear. ENT: Normal voice, Moist mucous membranes. NECK: Normal range of motion, supple LUNGS: Breath sounds equal, clear to auscultation bilaterally. No wheezes, no rhonchi, no rales. HEART: Regular rate and rhythm, normal S1 and S2 without murmur, rub or gallop. ABDOMEN: Soft, nontender, No guarding, no rebound. . No CVA tenderness EXTREMITIES: Normal range of motion, no edema. NEUROLOGICAL: No facial assymetry, Normal speech, PSYCH: Normal mood, normal affect. SKIN: Warm, Dry, normal turgor, Medical Decision Making - Medical Decision Making 12/13/18 10:11 Likely viral syndrome versus influenza We'll obtain x-ray to rule out pneumonia vitals are normal here without signs of hypoxia or tachycardia or fever We'll give the quafenicen and Tylenol for symptomatically relief 12/13/18 10:11 12/13/18 11:14 The patient's chest x-ray appears negative for pneumonia we'll treat the patient symptomatically for influenza with tamiflu pmd fu return precautions wer dsicussed I discussed the physical exam findings, ancillary test results and final diagnoses with the patient. I answered all of the patient's questions. The patient was satisfied with the care received and felt comfortable with the discharge plan and treatment plan. The patient will call their primary care physician within 24 hours to arrange follow-up and will return to the Emergency Department with any new, persistent or worsening symptoms. *DC/Admit/Observation/Transfer Diagnosis at time of Disposition: Flu-like symptoms - Discharge Dispostion Disposition: HOME Condition at time of disposition: Improved Decision to Admit order: No - Referrals Referrals: Dejuan Bartholomew MD [Primary Care Provider] - - Patient Instructions Printed Discharge Instructions: DI for Viral Upper Respiratory Infection -- Adult, DI for Influenza -- Adult Additional Instructions: Regrese al departamento de emergencias inmediatamente con CUALQUIER sntoma nuevo, persistente o que empeore. Ibuprofeno o Tylenol para la fiebre o avani corporales Maribell el Tamiflu segn lo prescrito. Herrick el medicamento para la tos jim se lo recetaron, puede causarle sueo, as que no tome medicamentos si va a conducir o meaghan algo que lo ponga en peligro si se queda dormido. DEBE llamar y hacer un seguimiento con rea mdico maana para corby evaluacin adicional de atif sntomas. Los resultados fueron discutidos con usted. Asegrese de que rea mdico revise los resultados de rea evaluacin de emergencia. Si tuvo radiografas prabha rea visita, la le de manera preliminar, un radilogo la revisar y, si hay algn hallazgo adicional, lo llamaremos Return to the emergency department immediately with ANY new, persistent or worsening symptoms. Ibuprofen or Tylenol for fevers or body aches Take the Tamiflu as prescribed Take the cough medicine as prescribed, it may make you sleepy so do not take medicine if you are going to drive or do anything that will put you in danger if you fall asleep. You MUST call and follow up with your doctor tomorrow for further evaluation of your symptoms. Results were discussed with you. Please make sure your doctor reviews the results of your emergency evaluation. If you had any xrays during your visit, it was read preliminarily by myself, a Radiologist will review it and if there are any additional findings we will call you. Print Language: LATVIAN - Post Discharge Activity
[2018-12-13 09:41] VITALS: BP 148/87; PULSE 83; TEMP 99.1; BMI 27.0
[2018-12-13] MEDS ORDERED: ACETAMINOPHEN 325 MG TABLET (FP) PO ONE (10:04)
[2018-12-13] MEDS ORDERED: guaiFENesin/CODEINE 10 ML UNIT-DOSE CUPS PO ONE (10:05)
[2018-12-13] MEDS ORDERED: ACETAMINOPHEN 325 MG TABLET (FP) ONE (10:18)
[2018-12-13] MEDS ORDERED: guaiFENesin/CODEINE 10 ML UNIT-DOSE CUPS ONE (10:20)
== END 2018-12-13 11:46 | disposition home or self-care (01) ==
LOC: FER 09:17
DX: J11.1 Influenza due to unidentified influenza virus with other respiratory manifestations (principal)
CPT/HCPCS: 71046-TC-FY; 99281-25

== ENCOUNTER 2019-04-28 15:24 | Inpatient (IN) | payer OTHER ==
[~2019-04-28 15:24] MED LIST: PIPERACILLIN/TAZOB 3.375 GM 3.375 GM in DEXTROSE 5%-WATER - 50 ML IVPB SCH
[2019-04-28] MEDS ORDERED: PIPERACILLIN/TAZOB 4.5 GM 4.5 GM in DEXTROSE 5%-WATER 100 ML IVPB ONE (15:43)
[2019-04-28] MEDS ORDERED: VANCOMYCIN 1 GM in D5W (PRE-DOCKED) 1,000 MG/250 ML IVPB ONE (15:45)
[2019-04-28] MEDS ORDERED: PIPERACILLIN/TAZOBACTAM 4.5 GM VIAL IVPB ONE (16:08)
[2019-04-28] MEDS ORDERED: VANCOMYCIN 1,000 MG VIAL (RESTRICTED TO ID ONLY) ONE (16:08)
--- NOTE | 2019-04-28 16:09 | PDOC ---
Attending Attestation - Resident Resident Name: Jf Fischer - ED Attending Attestation I have performed the following: I have examined & evaluated the patient, The case was reviewed & discussed with the resident, I agree w/resident's findings & plan, Exceptions are as noted - HPI HPI: 04/28/19 16:04 68 F with h/o DM presents to ED with L 5th toe wound. Pt states that she was in [place] about a month ago when she applied a bunion-removing ointment to a bunion on the lateral aspect of her L pinky toe. Pt states that after a day or two, the bunion came off, along with a portion of the skin underneath. Since then, the wound has gotten deeper, with a black film covering it. Pt states that occasionally the black layer will fall off, revealing exposed flesh. Pt also notes increasing redness and swelling to the area around the wound. Pt notes that she saw pus draining from it earlier today. Pt denies F/C. - Physicial Exam PE: 04/28/19 16:07 "GENERAL: Awake, alert, and fully oriented, in no acute distress. HEAD: No signs of trauma EYES: PERRLA, EOMI, sclera anicteric, conjunctiva clear ENT: Auricles normal inspection, hearing grossly normal, nares patent, oropharynx clear without exudates. Moist mucosa NECK: Nontender, no stepoffs, Normal ROM, supple, no lymphadenopathy, JVD, or masses LUNGS: Breath sounds equal, clear to auscultation bilaterally. No wheezes, and no crackles HEART: Regular rate and rhythm, normal S1 and S2, no murmurs, rubs or gallops ABDOMEN: Soft, nontender, normoactive bowel sounds. No guarding, no rebound. No masses EXTREMITIES: Normal range of motion, no edema. No clubbing or cyanosis. No cords, erythema, or tenderness NEUROLOGICAL: Cranial nerves II through XII intact. 5/5 strength and sensation in all extremities, Normal speech, normal gait, normal cerebellar function SKIN: + ulcer to lateral L 5th toe, with black eschar overlying, + surrounding erythema and edema extending up to mid-foot - Medical Decision Making 04/28/19 16:08 68 F with infected ulcer to L 5th toe with surrounding cellulitis. - Labs, cultures - IV abx - Admit
[2019-04-28 16:34] LABS: BASO % 0.6 % (0-2.0); EOS % 2.1 % (0-4.5); HEMATOCRIT 32.7 % (32.4-45.2); HEMOGLOBIN 11.1 GM/dl (10.7-15.3); LYMPH % 25.2 % (8-40); MCHC 33.8 g/dl (32.0-36.0); MEAN CELL VOLUME 79.9 fl (80-96); MEAN PLT VOLUME 8.5 fl (7.5-11.1); MONO % 7.9 % (3.8-10.2); NEUT % 64.2 % (42.8-82.8); PLATELET COUNT 247 K/MM3 (134-434); RBC 4.09 M/mm3 (3.60-5.2); WHITE BLOOD COUNT 6.3 K/mm3 (4.0-10.8)
[2019-04-28 16:42] LABS: ALBUMIN 3.7 g/dl (3.4-5.0); BILIRUBIN,TOTAL 0.4 mg/dl (0.2-1); CREATININE 0.7 mg/dl (0.55-1.3); POTASSIUM 4.3 mmol/L (3.5-5.1); TOT PROT 6.6 g/dl (6.4-8.2)
--- NOTE | 2019-04-28 17:29 | PDOC ---
History of Present Illness - General Chief Complaint: Wound Stated Complaint: left toe injury Time Seen by Provider: 04/28/19 15:29 History Source: Patient, Family - History of Present Illness Initial Comments: 04/28/19 17:27 Ms. Sprague is a 68 y/o Khmer speaking woman with hx IDDM, depression, HLD p/w one month of worsening wound on her L fifth toe. She is accompanied by her son, who speaks [place]. She returned from a vacation to [place] with her today, and was encouraged to seek evaluation by her son once they arrived. She reports that one month ago PCP: Dr. Dejuan Bartholomew Past History - Past Medical History Allergies/Adverse Reactions: Allergies Allergy/AdvReac Type Severity Reaction Status Date / Time No Known Allergies Allergy Verified 04/28/19 15:25 Home Medications: Ambulatory Orders Gabapentin 300 mg PO DAILY 04/28/19 Insulin Detemir [Levemir Flextouch] 20 unit SQ DAILY 04/28/19 Lisinopril [Zestril] 5 mg PO DAILY 04/28/19 Meclizine HCl [Antivert -] 25 mg PO BID PRN 04/28/19 Omeprazole 40 mg PO DAILY 04/28/19 Pravastatin Sodium [Pravachol] 40 mg PO DAILY 04/28/19 Sertraline HCl [Zoloft -] 50 mg PO DAILY 04/28/19 Sitagliptin Phosphate [Januvia] 100 mg PO DAILY 04/28/19 metFORMIN HCL [Metformin HCl] 850 mg PO BID 04/28/19 COPD: No Diabetes: Yes (insulin-dependent) HTN: Yes Hypercholesterolemia: Yes Psychiatric Problems: Yes (DEPRESSION) - Surgical History Orthopedic Surgery: Yes (B/L TOTAL KNEE REPLACEMENT) - Immunization History Td Vaccination: Yes Immunization Up to Date: No - Suicide/Smoking/Psychosocial Hx Smoking Status: No Smoking History: Never smoked Have you smoked in the past 12 months: No Number of Cigarettes Smoked Daily: 0 Hx Alcohol Use: No Drug/Substance Use Hx: No Substance Use Type: None Hx Substance Use Treatment: No Review of Systems - Review of Systems Able to Perform ROS?: Yes Comments:: 04/28/19 18:51 ROS: GENERAL/CONSTITUTIONAL: No fever or chills. No weakness. HEAD, EYES, EARS, NOSE AND THROAT: No change in vision. No ear pain or discharge. No sore throat. CARDIOVASCULAR: No chest pain or shortness of breath RESPIRATORY: No cough, wheezing, or hemoptysis. GASTROINTESTINAL: No nausea, vomiting, diarrhea or constipation. GENITOURINARY: No dysuria, frequency, or change in urination. MUSCULOSKELETAL: Pain, swelling of L foot. No neck or back pain. SKIN: No rash NEUROLOGIC: No headache, vertigo, loss of consciousness, or change in strength/ sensation. ENDOCRINE: No increased thirst. No abnormal weight change HEMATOLOGIC/LYMPHATIC: No anemia, easy bleeding, or history of blood clots. ALLERGIC/IMMUNOLOGIC: No hives or skin allergy. *Physical Exam - Vital Signs Last Vital Signs Temp Pulse Resp BP Pulse Ox 98.3 F 83 17 138/69 99 04/28/19 15:24 04/28/19 15:24 04/28/19 15:24 04/28/19 15:24 04/28/19 15:24 - Physical Exam Comments: 04/28/19 18:54 PE: GENERAL: Awake, alert, and fully oriented, in no acute distress HEAD: No signs of trauma, normocephalic, atraumatic EYES: PERRLA, EOMI, sclera anicteric, conjunctiva clear ENT: Auricles normal inspection, hearing grossly normal, nares patent, oropharynx clear without exudates. Moist mucosa NECK: Normal ROM, supple, no lymphadenopathy, JVD, or masses LUNGS: No distress, speaks full sentences, clear to auscultation bilaterally HEART: Regular rate and rhythm, normal S1 and S2, no murmurs, rubs or gallops, peripheral pulses normal and equal bilaterally. ABDOMEN: Soft, nontender, normoactive bowel sounds. No guarding, no rebound. No masses EXTREMITIES : Mild swelling of L lower foot. 1cm x 0.5 cm black eschar noted over L fifth toe.Tenderness to palpation over toe, as well as tenderness over foot. No clubbing or cyanosis. SKIN: Warm, Dry, normal turgor, no rashes or lesions noted except as described above. ED Treatment Course - LABORATORY CBC & Chemistry Diagram: 04/28/19 15:55 04/28/19 15:55 - ADDITIONAL ORDERS Additional order review: Laboratory Results 04/28/19 15:55 Sodium 137 Potassium 4.3 Chloride 108 H Carbon Dioxide 24 Anion Gap 5 L BUN 16.0 Creatinine 0.7 Est GFR (CKD-EPI)AfAm 101.74 Est GFR (CKD-EPI)NonAf 87.78 Random Glucose 184 H Calcium 9.0 Total Bilirubin 0.4 AST 18 ALT 16 Alkaline Phosphatase 76 Total Protein 6.6 Albumin 3.7 04/28/19 15:55 RBC 4.09 MCV 79.9 L MCHC 33.8 RDW 13.0 MPV 8.5 Neutrophils % 64.2 Lymphocytes % 25.2 Monocytes % 7.9 Eosinophils % 2.1 Basophils % 0.6 - RADIOLOGY Radiology Studies Ordered: Category Date Time Status FOOT-LEFT [RAD] Stat Radiology 04/28/19 15:43 Completed - Medications Given in the ED: ED Medications Discontinued Medications Generic Name Dose Route Start Last Admin Trade Name Freq PRN Reason Stop Dose Admin Piperacillin Sod/Tazobactam 100 mls @ 200 mls/hr 04/28/19 15:43 04/28/19 16: 27 Sod 4.5 gm/ Dextrose IVPB 04/28/19 16:12 200 mls/hr ONCE ONE Administration Protocol Vancomycin HCl 1,000 mg 04/28/19 15:45 04/28/19 17:00 Vancomycin (Pre-Docked) IVPB 04/28/19 15:46 1,000 mg ONCE ONE Administration Protocol Medical Decision Making - Medical Decision Making 04/28/19 18:48 68 y/o F with hx IDDM p/w one month of worsening, purulent eschar on L toe with cellulitis of foot. Given hx DM, duration of infection concern for soft tissue infection vs osteomyelitis. She does not endorse pain at rest at this time. Plan: - CBC - CMP - Blood cultures - Vanc/Zosyn - X ray LLE, as MRI not available at Dispo: Admit --- CBC, CMP within normal limits X ray LLE negative for fracture, unable to rule out osteo --- Case discussed with admitting physician, plan for inpatient admission for IV antibiotics, MRI imaging *DC/Admit/Observation/Transfer Diagnosis at time of Disposition: Cellulitis Qualifiers: Site of cellulitis: extremity Site of cellulitis of extremity: lower extremity Laterality: left Qualified Code(s): L03.116 - Cellulitis of left lower limb - Discharge Dispostion Condition at time of disposition: Stable Decision to Admit order: Yes - Referrals Referrals: Dejuan Bartholomew MD [Primary Care Provider] - - Patient Instructions - Post Discharge Activity
--- NOTE | 2019-04-28 18:04 | HP ---
CHIEF COMPLAINT: PCP: Dr. Dejuan Bartholomew HISTORY OF PRESENT ILLNESS: 68 year-old female with a PMH significant for HTN, HLD, GERD, Type II IDDM, and depression who presented to the ED for evaluation of a left fifth toe wound. Patient was in [place] about a month ago when she applied a bunion-removing ointment to a bunion on the lateral aspect of her left pinky toe. After a day or two the bunion came off, along with a portion of the skin underneath. She saw a doctor who prescribed 5 days of oral antibiotics which she completed. The wound is better now than it was a month ago, it is less swollen. There is no pain. Patient states there has been no pus in the wound. Earlier today some clear liquid came out but nothing thick or with a color. Patient denies fever, sweats, chills, nausea, vomiting, diarrhea. She otherwise feels well, no complaints. ER course was notable for: (1) Vanc x 1; Zosyn x 1 (2) Xray left foot: no acute process Recent Travel: [place] PAST MEDICAL HISTORY: Hypertension Hyperlipidemia GERD Type II IDDM Uterine prolapse Depression PAST SURGICAL HISTORY: Cataracts [facility] 2017 Bilateral total knee replacements Social History: Smoking: never Alcohol: no Drugs: no Family History: Allergies No Known Allergies Allergy (Verified 04/28/19 15:25) HOME MEDICATIONS: Home Medications Medication Instructions Recorded Guaifenesin AC [Robitussin AC -] 5 ml PO TID PRN #120 ml MDD 20 12/13/18 Insulin Detemir [Levemir Flextouch] 20 unit SQ DAILY 12/13/18 Oseltamivir Phosphate [Tamiflu] 75 mg PO BID #10 capsule 12/13/18 REVIEW OF SYSTEMS CONSTITUTIONAL: Absent: fever, chills, diaphoresis, generalized weakness, malaise, loss of appetite, weight change HEENT: Absent: rhinorrhea, nasal congestion, throat pain, throat swelling, difficulty swallowing, mouth swelling, ear pain, eye pain, visual changes CARDIOVASCULAR: Absent: chest pain, syncope, palpitations, irregular heart rate, lightheadedness , peripheral edema RESPIRATORY: Absent: cough, shortness of breath, dyspnea with exertion, orthopnea, wheezing, stridor, hemoptysis GASTROINTESTINAL: Absent: abdominal pain, abdominal distension, nausea, vomiting, diarrhea, constipation, melena, hematochezia GENITOURINARY: Absent: dysuria, frequency, urgency, hesitancy, hematuria, flank pain, genital pain MUSCULOSKELETAL: Absent: myalgia, arthralgia, joint swelling, back pain, neck pain SKIN: +wound left fifth toe Absent: rash, itching, pallor HEMATOLOGIC/IMMUNOLOGIC: Absent: easy bleeding, easy bruising, lymphadenopathy, frequent infections ENDOCRINE: Absent: unexplained weight gain, unexplained weight loss, heat intolerance, cold intolerance NEUROLOGIC: Absent: headache, focal weakness or paresthesias, dizziness, unsteady gait, seizure, mental status changes, bladder or bowel incontinence PSYCHIATRIC: Absent: anxiety, depression, suicidal or homicidal ideation, hallucinations. PHYSICAL EXAMINATION Vital Signs - 24 hr 04/28/19 15:24 Temperature 98.3 F Pulse Rate 83 Respiratory 17 Rate Blood Pressure 138/69 O2 Sat by Pulse 99 Oximetry (%) GENERAL: Awake, alert, and fully oriented, in no acute distress. LUNGS: Breath sounds equal, clear to auscultation bilaterally. No wheezes, and no crackles. No accessory muscle use. HEART: Regular rate and rhythm, S1 and S2 ABDOMEN: Soft, nontender, not distended, normoactive bowel sounds MUSCULOSKELETAL: Normal range of motion at all joints. No bony deformities or tenderness. No CVA tenderness. UPPER EXTREMITIES: 2+ pulses, warm, well-perfused. No cyanosis. No clubbing. No peripheral edema. LOWER EXTREMITIES: 2+ pulses, warm, well-perfused. No calf tenderness. No peripheral edema. Well-healed surgical scars both knees NEUROLOGICAL: Cranial nerves II-XII intact. Normal speech. SKIN: Left fifth toe area of necrosis, dry. Patch of dry skin on the dorsal aspect contiguous to the area of necrosis; no erythema, mild warmth to touch, no swelling, no fluctuance Laboratory Results - last 24 hr 04/28/19 04/28/19 15:55 15:55 WBC 6.3 RBC 4.09 Hgb 11.1 Hct 32.7 MCV 79.9 L MCH 27.0 MCHC 33.8 RDW 13.0 Plt Count 247 MPV 8.5 Absolute Neuts (auto) 4.1 Neutrophils % 64.2 Lymphocytes % 25.2 Monocytes % 7.9 Eosinophils % 2.1 Basophils % 0.6 Sodium 137 Potassium 4.3 Chloride 108 H Carbon Dioxide 24 Anion Gap 5 L BUN 16.0 Creatinine 0.7 Est GFR (CKD-EPI)AfAm 101.74 Est GFR (CKD-EPI)NonAf 87.78 Random Glucose 184 H Calcium 9.0 Total Bilirubin 0.4 AST 18 ALT 16 Alkaline Phosphatase 76 Total Protein 6.6 Albumin 3.7 ASSESSMENT/PLAN 68 year-old female with a PMH significant for HTN, HLD, GERD, Type II IDDM, and depression. Admitted for left foot wound. Left foot cellulitis --wound to left fifth toe x 1 month; took PO antibiotics when first occurred --afebrile, no leukocytosis --xray left foot unremarkable --needs outpatient MRI to r/o osteo --needs outpatient followup with podiatry at [facility] Type II IDDM --Levemir 20U daily --Novolog sliding scale coverage --continue Gabapentin Hypertension --continue lisinopril Hyperlipidemia --continue Lipitor GERD --continue protonix Depression --continue sertraline FEN Fluids: PO intake adequate Electrolytes: replete as indicated Nutrition: diabetic, low sodium DVT prophylaxis: subq heparin Physical therapy Dispo: continues to require inpatient care. Full code. Visit type - Emergency Visit Emergency Visit: Yes ED Registration Date: 04/28/19 Care time: The patient presented to the Emergency Department on the above date and was hospitalized for further evaluation of their emergent condition. - New Patient This patient is new to me today: Yes Date on this admission: 04/28/19 - Critical Care Critical Care patient: No
[2019-04-28 18:29] VITALS: TEMP 97.9
--- NOTE | 2019-04-28 20:21 | DS ---
Physical Exam: SUBJECTIVE: Patient seen and examined OBJECTIVE: Vital Signs Period Temp Pulse Resp BP Sys/Mendez Pulse Ox Last 24 Hr 97.9 F-98.3 F 83-89 17-17 129-138/69-69 99-99 PHYSICAL EXAM GENERAL: The patient is awake, alert, and fully oriented, in no acute distress. HEAD: Normal with no signs of trauma. EYES: PERRL, extraocular movements intact, sclera anicteric, conjunctiva clear. ENT: Ears normal, nares patent, oropharynx clear without exudates, moist mucous membranes. NECK: Trachea midline, full range of motion, supple. LUNGS: Breath sounds equal, clear to auscultation bilaterally, no wheezes, no crackles, no accessory muscle use. HEART: Regular rate and rhythm, S1, S2 without murmur, rub or gallop. ABDOMEN: Soft, nontender, nondistended, normoactive bowel sounds, no guarding, no rebound, no hepatosplenomegaly, no masses. EXTREMITIES: 2+ pulses, warm, well-perfused, no edema. NEUROLOGICAL: Cranial nerves II through XII grossly intact. Normal speech, gait not observed. PSYCH: Normal mood, normal affect. SKIN: Warm, dry, normal turgor, no rashes or lesions noted. LABS Laboratory Results - last 24 hr 04/28/19 04/28/19 04/28/19 15:55 15:55 20:08 WBC 6.3 RBC 4.09 Hgb 11.1 Hct 32.7 MCV 79.9 L MCH 27.0 MCHC 33.8 RDW 13.0 Plt Count 247 MPV 8.5 Absolute Neuts (auto) 4.1 Neutrophils % 64.2 Lymphocytes % 25.2 Monocytes % 7.9 Eosinophils % 2.1 Basophils % 0.6 Sodium 137 Potassium 4.3 Chloride 108 H Carbon Dioxide 24 Anion Gap 5 L BUN 16.0 Creatinine 0.7 Est GFR (CKD-EPI)AfAm 101.74 Est GFR (CKD-EPI)NonAf 87.78 POC Glucometer 118 Random Glucose 184 H Calcium 9.0 Total Bilirubin 0.4 AST 18 ALT 16 Alkaline Phosphatase 76 Total Protein 6.6 Albumin 3.7 HOSPITAL COURSE: Date of Admission:04/28/19 Date of Discharge: 04/28/19 Minutes to complete discharge: 35 Discharge Summary Reason For Visit: CELLULITIS Current Active Problems Cellulitis (Acute) Condition: Stable - Instructions - Home Medications Comprehensive Discharge Medication List: Ambulatory Orders Gabapentin 300 mg PO DAILY 04/28/19 Insulin Detemir [Levemir Flextouch] 20 unit SQ DAILY 04/28/19 Lisinopril [Zestril] 5 mg PO DAILY 04/28/19 Meclizine HCl [Antivert -] 25 mg PO BID PRN 04/28/19 Omeprazole 40 mg PO DAILY 04/28/19 Pravastatin Sodium [Pravachol] 40 mg PO DAILY 04/28/19 Sertraline HCl [Zoloft -] 50 mg PO DAILY 04/28/19 Sitagliptin Phosphate [Januvia] 100 mg PO DAILY 04/28/19 metFORMIN HCL [Metformin HCl] 850 mg PO BID 04/28/19 This patient is new to me today: Yes Date on this admission: 04/28/19 Emergency Visit: Yes ED Registration Date: 04/28/19 Care time: The patient presented to the Emergency Department on the above date and was hospitalized for further evaluation of their emergent condition. Critical Care patient: No - Discharge Referral Referred to [facility] Med P.C.: No
--- NOTE | 2019-04-28 20:25 | DS ---
Physical Exam: SUBJECTIVE: Patient seen and examined OBJECTIVE: Vital Signs Period Temp Pulse Resp BP Sys/Mendez Pulse Ox Last 24 Hr 97.9 F-98.3 F 83-89 17-17 129-138/69-69 99-99 PHYSICAL EXAM GENERAL: The patient is awake, alert, and fully oriented, in no acute distress. HEAD: Normal with no signs of trauma. EYES: PERRL, extraocular movements intact, sclera anicteric, conjunctiva clear. ENT: Ears normal, nares patent, oropharynx clear without exudates, moist mucous membranes. NECK: Trachea midline, full range of motion, supple. LUNGS: Breath sounds equal, clear to auscultation bilaterally, no wheezes, no crackles, no accessory muscle use. HEART: Regular rate and rhythm, S1, S2 without murmur, rub or gallop. ABDOMEN: Soft, nontender, nondistended, normoactive bowel sounds, no guarding, no rebound, no hepatosplenomegaly, no masses. EXTREMITIES: 2+ pulses, warm, well-perfused, no edema. NEUROLOGICAL: Cranial nerves II through XII grossly intact. Normal speech, gait not observed. PSYCH: Normal mood, normal affect. SKIN: Warm, dry, normal turgor, no rashes or lesions noted. LABS Laboratory Results - last 24 hr 04/28/19 04/28/19 04/28/19 15:55 15:55 20:08 WBC 6.3 RBC 4.09 Hgb 11.1 Hct 32.7 MCV 79.9 L MCH 27.0 MCHC 33.8 RDW 13.0 Plt Count 247 MPV 8.5 Absolute Neuts (auto) 4.1 Neutrophils % 64.2 Lymphocytes % 25.2 Monocytes % 7.9 Eosinophils % 2.1 Basophils % 0.6 Sodium 137 Potassium 4.3 Chloride 108 H Carbon Dioxide 24 Anion Gap 5 L BUN 16.0 Creatinine 0.7 Est GFR (CKD-EPI)AfAm 101.74 Est GFR (CKD-EPI)NonAf 87.78 POC Glucometer 118 Random Glucose 184 H Calcium 9.0 Total Bilirubin 0.4 AST 18 ALT 16 Alkaline Phosphatase 76 Total Protein 6.6 Albumin 3.7 HOSPITAL COURSE: Date of Admission:04/28/19 Date of Discharge: 04/28/19 Confirmed with Wound Center patient has appointment with Dr. Ma on 05/20/19. Minutes to complete discharge: 35 Discharge Summary Reason For Visit: CELLULITIS Current Active Problems Cellulitis (Acute) Condition: Stable - Instructions Diet, Activity, Other Instructions: You need to be seen and evaluated by a product handler at the Wound Center. An appointment will be made for you tomorrow morning when the Wound Center opens. We will contact you with the date and time of your appointment. Referrals: Chad Urbina MD [Staff Physician] - Disposition: HOME - Home Medications Comprehensive Discharge Medication List: Ambulatory Orders Gabapentin 300 mg PO DAILY 04/28/19 Insulin Detemir [Levemir Flextouch] 20 unit SQ DAILY 04/28/19 Lisinopril [Zestril] 5 mg PO DAILY 04/28/19 Meclizine HCl [Antivert -] 25 mg PO BID PRN 04/28/19 Omeprazole 40 mg PO DAILY 04/28/19 Pravastatin Sodium [Pravachol] 40 mg PO DAILY 04/28/19 Sertraline HCl [Zoloft -] 50 mg PO DAILY 04/28/19 Sitagliptin Phosphate [Januvia] 100 mg PO DAILY 04/28/19 metFORMIN HCL [Metformin HCl] 850 mg PO BID 04/28/19 This patient is new to me today: Yes Date on this admission: 05/02/19 Emergency Visit: Yes ED Registration Date: 04/28/19 Care time: The patient presented to the Emergency Department on the above date and was hospitalized for further evaluation of their emergent condition. Critical Care patient: No - Discharge Referral Referred to [facility] Med P.C.: No
[2019-04-28] MEDS ORDERED: ATORVASTATIN CA 10 MG TABLET (FP) PO SCH (22:00)
[2019-04-28] MEDS ORDERED: INSULIN SLIDING SCALE (NOVOLOG) 1 VIAL SQ SCH (22:00)
[2019-04-29] MEDS ORDERED: PIPERACILLIN/TAZOB 3.375 GM 3.375 GM in DEXTROSE 5%-WATER - 50 ML IVPB SCH ×3 (00:01→02:00)
[2019-04-29] MEDS ORDERED: VANCOMYCIN 1 GM in D5W (PRE-DOCKED) 1,000 MG/250 ML IVPB SCH (04:00)
[2019-04-29 07:06] VITALS: BP 137/67; PULSE 60; BMI 27.1
[2019-04-29] MEDS ORDERED: HEPARIN NA (PORCINE) 5,000 UNITS/ML 1ML VIAL SQ SCH (10:00)
[2019-04-29] MEDS ORDERED: GABAPENTIN 300 MG CAPSULE (FP) PO SCH (10:00)
[2019-04-29] MEDS ORDERED: INSULIN (LEVEMIR) 100 UNITS/ML UNITS SQ SCH (10:00)
[2019-04-29] MEDS ORDERED: PANTOPRAZOLE 40 MG TABLET (FP) PO SCH (10:00)
[2019-04-29] MEDS ORDERED: LISINOPRIL 5 MG TABLET (FP) PO SCH (10:00)
[2019-04-29] MEDS ORDERED: SERTRALINE HCL 50 MG TABLET (FP) PO SCH (10:00)
--- NOTE | 2019-05-03 09:38 | EKG ---
Test Reason : Blood Pressure : / mmHG Vent. Rate : 062 BPM Atrial Rate : 062 BPM P-R Int : 148 ms QRS Dur : 094 ms QT Int : 428 ms P-R-T Axes : 047 -25 030 degrees QTc Int : 434 ms NORMAL SINUS RHYTHM INCOMPLETE RIGHT BUNDLE BRANCH BLOCK BORDERLINE ECG WHEN COMPARED WITH ECG OF 20-APR-2012 09:09, NO SIGNIFICANT CHANGE WAS FOUND Confirmed by Angelo Burns MD ([id number]) on 05/03/2019 9:38:45 AM Referred By: Confirmed By:Angelo Burns MD
== END 2019-04-28 20:41 | disposition home or self-care (01) | DRG 603 ==
LOC: SUPCPDRO 15:24 → FER 15:24 → FM/S 19:13
PROVIDERS: ADMIT Internal Medicine; ATTEND Nurse Practitioner Acute Care
DX: L03.032 Cellulitis of left toe (principal); L03.116 Cellulitis of left lower limb; Z79.84 Long term (current) use of oral hypoglycemic drugs; Z79.4 Long term (current) use of insulin; I10 Essential (primary) hypertension; L97.529 Non-pressure chronic ulcer of other part of left foot with unspecified severity; Z96.653 Presence of artificial knee joint, bilateral; F32.9 Major depressive disorder, single episode, unspecified; K21.9 Gastro-esophageal reflux disease without esophagitis; E78.5 Hyperlipidemia, unspecified; N81.4 Uterovaginal prolapse, unspecified; Z90.710 Acquired absence of both cervix and uterus; E11.9 Type 2 diabetes mellitus without complications
CPT/HCPCS: 36415; 73630-TC-LT; 80053; 82962; 85025; 87040; 93005; 93010; 99283-25

== ENCOUNTER → 2019-05-26 | Day surgery (SDC) | payer OTHER | LOC: JRADIR 09:51 | PROVIDERS: ATTEND Internal Medicine Infectious Disease | DX: E13.621 Other specified diabetes mellitus with foot ulcer (principal); M86.672 Other chronic osteomyelitis, left ankle and foot; Z79.4 Long term (current) use of insulin | CPT/HCPCS: 36569; 77001-TC-FY; 82962; C1751; G0463-25 ==

== ENCOUNTER 2019-05-27 09:10 | Day surgery (SDC) | payer OTHER ==
[2019-05-27] MEDS ORDERED: SODIUM CHLORIDE 100 ML IVPB ONE (09:54)
[2019-05-27] MEDS ORDERED: CEFTRIAXONE 2 GM in DEXTROSE 5%-WATER 100 ML IVPB ONE (10:00)
[2019-05-27 14:12] VITALS: BP 128/73; PULSE 87; TEMP 98.4
== END 2019-05-27 10:55 | disposition home or self-care (01) ==
LOC: JINFUSION 09:10
PROVIDERS: ATTEND Internal Medicine Infectious Disease
DX: M86.9 Osteomyelitis, unspecified (principal); E11.9 Type 2 diabetes mellitus without complications
CPT/HCPCS: 82962; 96365; G0277

== ENCOUNTER 2019-05-28 09:00 | Day surgery (SDC) | payer OTHER ==
[2019-05-28] MEDS ORDERED: CEFTRIAXONE 2 GM in DEXTROSE 5%-WATER 100 ML IVPB ONE (09:30)
[2019-05-28] MEDS ORDERED: DEXTROSE 5%-WATER 100 ML IVPB ONE (09:33)
[2019-05-28 18:11] VITALS: BP 141/63; PULSE 73; TEMP 98.3
== END 2019-05-28 10:20 | disposition home or self-care (01) ==
LOC: JINFUSION 09:00 → J7W 09:01 → JINFUSION 10:20
PROVIDERS: ATTEND Internal Medicine Infectious Disease
DX: M86.9 Osteomyelitis, unspecified (principal); E11.9 Type 2 diabetes mellitus without complications
CPT/HCPCS: 96365

== ENCOUNTER 2019-05-29 10:52 | Day surgery (SDC) | payer OTHER ==
[2019-05-29] MEDS ORDERED: CEFTRIAXONE 2 GM in DEXTROSE 5%-WATER 100 ML IVPB ONE (11:30)
[2019-05-29] MEDS ORDERED: DEXTROSE 5%-WATER 100 ML IVPB ONE (11:35)
[2019-05-29 13:23] VITALS: TEMP 97.9
[2019-05-29 13:25] VITALS: BP 116/64; PULSE 67
== END 2019-05-29 12:15 | disposition home or self-care (01) ==
LOC: JINFUSION 10:52 → J7W 10:52 → JINFUSION 12:15
PROVIDERS: ATTEND Internal Medicine Infectious Disease
DX: M86.9 Osteomyelitis, unspecified (principal); E11.9 Type 2 diabetes mellitus without complications
CPT/HCPCS: 96365

== ENCOUNTER 2019-05-30 09:46 | Day surgery (SDC) | payer OTHER ==
[~2019-05-30 09:46] MED LIST changes: +CEFTRIAXONE 2 GM in SODIUM CHLORIDE 100 ML IVPB ONE; -PIPERACILLIN/TAZOB 3.375 GM 3.375 GM in DEXTROSE 5%-WATER - 50 ML IVPB SCH
[2019-05-30 11:21] VITALS: TEMP 98.2
[2019-05-30 11:24] VITALS: BP 133/66; PULSE 78
== END 2019-05-30 11:20 | disposition home or self-care (01) ==
LOC: JINFUSION 09:46
PROVIDERS: ATTEND Internal Medicine Infectious Disease
DX: M86.9 Osteomyelitis, unspecified (principal); E11.9 Type 2 diabetes mellitus without complications
CPT/HCPCS: 82962; 96365; G0277

== ENCOUNTER 2019-05-31 09:35 | Day surgery (SDC) | payer OTHER ==
[2019-05-31] MEDS ORDERED: SODIUM CHLORIDE 100 ML IVPB ONE (09:54)
[2019-05-31 11:17] VITALS: TEMP 98.1
[2019-05-31 11:21] VITALS: BP 126/63; PULSE 72
[2019-05-31] MEDS ORDERED: CEFTRIAXONE 2 GM in SODIUM CHLORIDE 100 ML IVPB ONE (11:30)
== END 2019-05-31 11:10 | disposition home or self-care (01) ==
LOC: JINFUSION 09:35
PROVIDERS: ATTEND Internal Medicine Infectious Disease
DX: M86.9 Osteomyelitis, unspecified (principal); E11.9 Type 2 diabetes mellitus without complications
CPT/HCPCS: 11042; 15275; 82962; 96365; G0277; Q4196

== ENCOUNTER 2019-06-01 08:51 | Day surgery (SDC) | payer OTHER ==
[2019-06-01] MEDS ORDERED: CEFTRIAXONE 2 GM in SODIUM CHLORIDE 100 ML IVPB ONE (09:15)
[2019-06-01] MEDS ORDERED: SODIUM CHLORIDE 100 ML IVPB ONE (09:21)
[2019-06-01 09:52] VITALS: TEMP 99.1
[2019-06-01 10:26] VITALS: BP 118/77; PULSE 77
== END 2019-06-01 10:23 | disposition home or self-care (01) ==
LOC: JINFUSION 08:51
PROVIDERS: ATTEND Internal Medicine Infectious Disease
DX: M86.9 Osteomyelitis, unspecified (principal); E11.9 Type 2 diabetes mellitus without complications
CPT/HCPCS: 82962; 96365; G0277

== ENCOUNTER 2019-06-02 08:57 | Day surgery (SDC) | payer OTHER ==
[2019-06-02] MEDS ORDERED: CEFTRIAXONE 2 GM in DEXTROSE 5%-WATER 100 ML IVPB ONE (09:00)
[2019-06-02] MEDS ORDERED: SODIUM CHLORIDE 100 ML IVPB ONE (09:22)
[2019-06-02] MEDS ORDERED: CEFTRIAXONE 2 GM in SODIUM CHLORIDE 100 ML IVPB ONE (09:24)
[2019-06-02 09:41] VITALS: TEMP 98.4
[2019-06-02 10:58] VITALS: BP 120/71; PULSE 81
== END 2019-06-02 10:45 | disposition home or self-care (01) ==
LOC: JINFUSION 08:57
PROVIDERS: ATTEND Internal Medicine Infectious Disease
DX: M86.9 Osteomyelitis, unspecified (principal); E13.621 Other specified diabetes mellitus with foot ulcer; M86.672 Other chronic osteomyelitis, left ankle and foot; Z79.4 Long term (current) use of insulin
CPT/HCPCS: 82962; 96365; G0277

== ENCOUNTER 2019-06-03 08:57 | Day surgery (SDC) | payer OTHER ==
[2019-06-03] MEDS ORDERED: SODIUM CHLORIDE 100 ML IVPB ONE (09:21)
[2019-06-03 10:35] VITALS: TEMP 98.4
[2019-06-03 10:37] VITALS: BP 126/62; PULSE 78
[2019-06-03] MEDS ORDERED: CEFTRIAXONE 2 GM in SODIUM CHLORIDE 100 ML IVPB ONE (10:45)
== END 2019-06-03 10:20 | disposition home or self-care (01) ==
LOC: JINFUSION 08:57
PROVIDERS: ATTEND Internal Medicine Infectious Disease
DX: M86.9 Osteomyelitis, unspecified (principal)
CPT/HCPCS: 82962; 96365; G0277

== ENCOUNTER 2019-06-04 08:59 | Day surgery (SDC) | payer OTHER ==
[2019-06-04] MEDS ORDERED: DEXTROSE 5%-WATER 100 ML IVPB ONE (09:51)
[2019-06-04] MEDS ORDERED: CEFTRIAXONE 2 GM in DEXTROSE 5%-WATER 100 ML IVPB ONE (10:00)
[2019-06-04 13:04] VITALS: BP 107/80; PULSE 80; TEMP 98
== END 2019-06-04 13:04 | disposition home or self-care (01) ==
LOC: JINFUSION 08:59 → J7W 09:00 → JINFUSION 13:04
PROVIDERS: ATTEND Internal Medicine Infectious Disease
DX: M86.9 Osteomyelitis, unspecified (principal)
CPT/HCPCS: 96365

== ENCOUNTER 2019-06-05 08:58 | Day surgery (SDC) | payer OTHER ==
[2019-06-05] MEDS ORDERED: CEFTRIAXONE 2 GM in DEXTROSE 5%-WATER 100 ML IVPB ONE (09:45)
[2019-06-05] MEDS ORDERED: DEXTROSE 5%-WATER 100 ML IVPB ONE (09:48)
[2019-06-05 10:52] VITALS: BP 117/51; PULSE 61; TEMP 98
== END 2019-06-05 10:52 | disposition home or self-care (01) ==
LOC: JINFUSION 08:58 → J7W 09:11 → JINFUSION 10:52
PROVIDERS: ATTEND Internal Medicine Infectious Disease
DX: M86.9 Osteomyelitis, unspecified (principal)
CPT/HCPCS: 96365

== ENCOUNTER 2019-06-06 09:14 | Day surgery (SDC) | payer OTHER ==
[2019-06-06] MEDS ORDERED: SODIUM CHLORIDE 100 ML IVPB ONE (10:58)
[2019-06-06] MEDS ORDERED: CEFTRIAXONE 2 GM in DEXTROSE 5%-WATER - 100 ML IVPB ONE (12:00)
[2019-06-06] MEDS ORDERED: CEFTRIAXONE 2 GM in SODIUM CHLORIDE 100 ML IVPB ONE (12:00)
[2019-06-06 12:42] VITALS: BP 128/64; PULSE 74; TEMP 98.4
== END 2019-06-06 12:00 | disposition home or self-care (01) ==
LOC: JINFUSION 09:14
PROVIDERS: ATTEND Internal Medicine Infectious Disease
DX: M86.9 Osteomyelitis, unspecified (principal)
CPT/HCPCS: 82962; 96365; 96366; 99281-25; G0277

== ENCOUNTER 2019-06-06 09:41 | Emergency (ER) | payer OTHER ==
[2019-06-06 10:04] VITALS: BP 122/67; PULSE 75; TEMP 98; BMI 27.6
--- NOTE | 2019-06-06 10:04 | PDOC ---
History of Present Illness - General Chief Complaint: Injury Stated Complaint: FALL Time Seen by Provider: 06/06/19 09:50 - History of Present Illness Initial Comments: 06/06/19 09:57 68 years old past medical history significant for diabetes, osteomyelitis presents to the ED status post a mechanical trip and fall. She was at wound clinic she has osteo-of the left foot walks with a walking shoe she tripped over the walking shoe landed gently to the ground. No head injury no neck injury this was witnessed it was no loss of consciousness no hand shoulder back chest abdominal or lower extremity pain. Patient is able to ambulate comfortably here in the emergency department in no distress. Past History - Past Medical History Allergies/Adverse Reactions: Allergies Allergy/AdvReac Type Severity Reaction Status Date / Time No Known Allergies Allergy Verified 06/06/19 09:52 Home Medications: Ambulatory Orders Insulin Detemir [Levemir Flextouch] 20 unit SQ DAILY 04/28/19 Lisinopril [Zestril] 5 mg PO DAILY 04/28/19 Omeprazole 40 mg PO DAILY 04/28/19 Pravastatin Sodium [Pravachol] 40 mg PO DAILY 04/28/19 Sertraline HCl [Zoloft -] 50 mg PO DAILY 04/28/19 metFORMIN HCL [Metformin HCl] 850 mg PO BID 04/28/19 Ceftriaxone in Is-Osm Dextrose [Ceftriaxone 2 gm Piggyback] 2 gm IV DAILY COPD: No Diabetes: Yes (insulin-dependent) HTN: Yes Hypercholesterolemia: Yes Psychiatric Problems: Yes (DEPRESSION) - Surgical History Orthopedic Surgery: Yes (B/L TOTAL KNEE REPLACEMENT) - Immunization History Td Vaccination: Yes Immunization Up to Date: No - Psycho Social/Smoking Cessation Hx Smoking Status: No Smoking History: Never smoked Have you smoked in the past 12 months: No Number of Cigarettes Smoked Daily: 0 Information on smoking cessation initiated: No Hx Alcohol Use: No Drug/Substance Use Hx: No Substance Use Type: None Hx Substance Use Treatment: No Review of Systems - Review of Systems Able to Perform ROS?: Yes Comments:: 06/06/19 10:00 ROS: A complete review of 10 out of 10 review of systems is taken and is negative apart from what is previously mentioned below and in the HPI. *Physical Exam - Vital Signs Last Vital Signs Temp Pulse Resp BP Pulse Ox 98.0 F 75 16 122/67 100 06/06/19 09:49 06/06/19 09:49 06/06/19 09:49 06/06/19 09:49 06/06/19 09:49 - Physical Exam Comments: 06/06/19 10:31 Vitals: Triage Vital signs reviewed General Appearance: no acute distress, well nourished well developed, Head: Atraumatic, Eyes: Pupils equal reactive round, extraocular movement intact murmurs, no rubs, no gallops, Lungs: Clear to auscultation bilateral, good air movement bilaterally, Abdomen: Soft, non distended, normal bowel sounds, non tender to palpation Extremities: Full range of motion to all extremities, no cyanosis, clubbing, or edema Musculoskeletal: No cervical thoracic, or lumbar midline TTP Skin: Warm and dry,left pinky toe with diabetic ulcer. Clean dry being followed by wound center Neuro: AOX3; Cranial Nerves 2-12 grossly intact, Strength intact to all extremities, Sensation intact to all extremities,gait normal Psych: normal mood, normal affect 06/06/19 17:55 Discharge - Discharge Information Problems reviewed: Yes Clinical Impression/Diagnosis: Fall Qualifiers: Encounter type: initial encounter Qualified Code(s): W19.XXXA - Unspecified fall, initial encounter - Admission No - Follow up/Referral Referrals: Dejuan Bartholomew MD [Primary Care Provider] - - Patient Discharge Instructions Patient Printed Discharge Instructions: How to Prevent Falls Additional Instructions: Follow up in Wound Care Return to ED for any pain or for any concerns. - Post Discharge Activity
== END 2019-06-06 10:47 ==
LOC: JER 09:41
DX: E13.621 Other specified diabetes mellitus with foot ulcer (principal); M86.672 Other chronic osteomyelitis, left ankle and foot; Z79.4 Long term (current) use of insulin
CPT/HCPCS: G0277

== ENCOUNTER 2019-06-07 09:40 | Day surgery (SDC) | payer OTHER ==
[~2019-06-07 09:40] MED LIST changes: +CEFTRIAXONE 2 GM in DEXTROSE 5%-WATER 100 ML IVPB ONE; -CEFTRIAXONE 2 GM in SODIUM CHLORIDE 100 ML IVPB ONE
[2019-06-07 10:42] VITALS: TEMP 98.6
[2019-06-07 14:27] VITALS: BP 145/66; PULSE 76
== END 2019-06-07 11:36 | disposition home or self-care (01) ==
LOC: JINFUSION 09:40
PROVIDERS: ATTEND Internal Medicine Infectious Disease
DX: M86.9 Osteomyelitis, unspecified (principal); E13.621 Other specified diabetes mellitus with foot ulcer; M86.672 Other chronic osteomyelitis, left ankle and foot; Z79.4 Long term (current) use of insulin
CPT/HCPCS: 11042; 15275; 96365; G0463-25; Q4196

== ENCOUNTER 2019-06-08 09:24 | Day surgery (SDC) | payer OTHER ==
[2019-06-08 11:21] VITALS: BP 126/68; PULSE 74; TEMP 98.3
== END 2019-06-08 10:40 | disposition home or self-care (01) ==
LOC: JINFUSION 09:24
PROVIDERS: ATTEND Internal Medicine Infectious Disease
DX: M86.9 Osteomyelitis, unspecified (principal)
CPT/HCPCS: 82962; 96365; G0277

== ENCOUNTER 2019-06-09 08:57 | Day surgery (SDC) | payer OTHER ==
[2019-06-09 10:52] VITALS: BP 143/78; PULSE 67; TEMP 99
== END 2019-06-09 11:00 | disposition home or self-care (01) ==
LOC: JINFUSION 08:57
PROVIDERS: ATTEND Internal Medicine Infectious Disease
DX: M86.9 Osteomyelitis, unspecified (principal)
CPT/HCPCS: 82962; 96365; G0277

== ENCOUNTER 2019-06-10 09:25 | Day surgery (SDC) | payer OTHER ==
[2019-06-10 09:44] VITALS: BP 119/57; PULSE 66; TEMP 97.9
[2019-06-10] MEDS ORDERED: CEFTRIAXONE 2 GM in DEXTROSE 5%-WATER 100 ML IVPB ONE (10:45)
[2019-06-10] MEDS ORDERED: DEXTROSE 5%-WATER 100 ML IVPB ONE (10:49)
== END 2019-06-10 11:36 | disposition home or self-care (01) ==
LOC: JINFUSION 09:25 → J7W 09:26 → JINFUSION 11:36
PROVIDERS: ATTEND Internal Medicine Infectious Disease
DX: M86.9 Osteomyelitis, unspecified (principal)
CPT/HCPCS: 82962; 96365; G0277

== ENCOUNTER 2019-06-11 09:24 | Day surgery (SDC) | payer OTHER ==
[2019-06-11] MEDS ORDERED: CEFTRIAXONE 2 GM in DEXTROSE 5%-WATER 100 ML IVPB ONE (10:00)
[2019-06-11 10:38] VITALS: BP 140/80; PULSE 71
[2019-06-11 10:39] VITALS: TEMP 98.7
== END 2019-06-11 11:00 | disposition home or self-care (01) ==
LOC: JINFUSION 09:24 → J7W 09:25 → JINFUSION 11:00
PROVIDERS: ATTEND Internal Medicine Infectious Disease
DX: M86.9 Osteomyelitis, unspecified (principal)
CPT/HCPCS: 96365

== ENCOUNTER 2019-06-12 08:46 | Day surgery (SDC) | payer OTHER ==
[2019-06-12] MEDS ORDERED: CEFTRIAXONE 2 GM in DEXTROSE 5%-WATER 100 ML IVPB ONE (09:45)
[2019-06-12] MEDS ORDERED: DEXTROSE 5%-WATER 100 ML IVPB ONE (09:46)
[2019-06-12 09:53] VITALS: BP 126/52; PULSE 78; TEMP 98.9
== END 2019-06-12 10:40 | disposition home or self-care (01) ==
LOC: J7W 08:46 → JINFUSION 08:46
PROVIDERS: ATTEND Internal Medicine Infectious Disease
DX: M86.9 Osteomyelitis, unspecified (principal)
CPT/HCPCS: 96365

== ENCOUNTER 2019-06-13 09:20 | Day surgery (SDC) | payer OTHER ==
[2019-06-13] MEDS ORDERED: CEFTRIAXONE 2 GM in DEXTROSE 5%-WATER 100 ML IVPB ONE (09:30)
[2019-06-13] MEDS ORDERED: SODIUM CHLORIDE 100 ML IVPB ONE (09:42)
[2019-06-13 11:15] VITALS: BP 123/66; PULSE 73; TEMP 98.3
== END 2019-06-13 10:45 | disposition home or self-care (01) ==
LOC: JINFUSION 09:20
PROVIDERS: ATTEND Internal Medicine Infectious Disease
DX: M86.9 Osteomyelitis, unspecified (principal); E13.621 Other specified diabetes mellitus with foot ulcer; M86.672 Other chronic osteomyelitis, left ankle and foot; Z79.4 Long term (current) use of insulin
CPT/HCPCS: 82962; 96365; G0277

== ENCOUNTER 2019-06-14 09:46 | Day surgery (SDC) | payer OTHER ==
[2019-06-14] MEDS ORDERED: SODIUM CHLORIDE 100 ML IVPB ONE (10:08)
[2019-06-14 10:12] LABS: HEMATOCRIT 33.6 % (32.4-45.2); HEMOGLOBIN 10.9 GM/dL (10.7-15.3); MCH 25.8 pg (25.7-33.7); MCHC 32.5 g/dl (32.0-36.0); MEAN CELL VOLUME 79.4 fl (80-96); MEAN PLT VOLUME 8.5 fl (7.5-11.1); PLATELET COUNT 197 K/MM3 (134-434); RBC 4.23 M/mm3 (3.60-5.2); RDW 14.5 % (11.6-15.6); WHITE BLOOD COUNT 6.1 K/mm3 (4.0-10.0)
[2019-06-14 10:35] LABS: ANION GAP 6 MMOL/L (8-16); BLOOD UREA NITROGEN 13.8 mg/dL (7-18); CALCIUM 9.1 mg/dL (8.5-10.1); CHLORIDE 110 mmol/L (98-107); CO2 24 mmol/L (21-32); CREATININE 0.8 mg/dL (0.55-1.3); GLUCOSE,RANDOM 238 mg/dL (74-106); POTASSIUM 5.2 mmol/L (3.5-5.1); SODIUM 140 mmol/L (136-145)
[2019-06-14 11:11] VITALS: BP 138/74; PULSE 78; TEMP 97.9
[2019-06-14 11:32] LABS: ERYTHROCYTE SEDIMENTATION RATE 18 mm/hr (0-30)
== END 2019-06-14 11:15 | disposition home or self-care (01) ==
LOC: JINFUSION 09:46
PROVIDERS: ATTEND Internal Medicine Infectious Disease
DX: M86.9 Osteomyelitis, unspecified (principal); E13.621 Other specified diabetes mellitus with foot ulcer; M86.672 Other chronic osteomyelitis, left ankle and foot; Z79.4 Long term (current) use of insulin
CPT/HCPCS: 11042; 15275; 36415; 80048; 82962; 85027; 85651; 86140; 96365; Q4196

== ENCOUNTER 2019-06-15 10:00 | Day surgery (SDC) | payer OTHER ==
[2019-06-15 13:04] VITALS: TEMP 98.4
[2019-06-15 14:36] VITALS: BP 137/72; PULSE 83
== END 2019-06-15 13:45 | disposition home or self-care (01) ==
LOC: JINFUSION 10:00
PROVIDERS: ATTEND Internal Medicine Infectious Disease
DX: M86.9 Osteomyelitis, unspecified (principal)
CPT/HCPCS: 82962; 96365; G0277

== ENCOUNTER 2019-06-16 09:06 | Day surgery (SDC) | payer OTHER ==
[2019-06-16] MEDS ORDERED: SODIUM CHLORIDE 100 ML IVPB ONE (09:22)
[2019-06-16 09:30] VITALS: TEMP 98.4
[2019-06-16 10:37] VITALS: BP 137/84; PULSE 82
== END 2019-06-16 10:30 | disposition home or self-care (01) ==
LOC: JINFUSION 09:06
PROVIDERS: ATTEND Internal Medicine Infectious Disease
DX: E13.621 Other specified diabetes mellitus with foot ulcer (principal); M86.672 Other chronic osteomyelitis, left ankle and foot; Z79.4 Long term (current) use of insulin; M86.9 Osteomyelitis, unspecified
CPT/HCPCS: 82962; 96365; G0277

== ENCOUNTER 2019-06-17 10:14 | Day surgery (SDC) | payer OTHER ==
[2019-06-17] MEDS ORDERED: SODIUM CHLORIDE 100 ML IVPB ONE (10:26)
[2019-06-17 10:49] VITALS: TEMP 98.7
[2019-06-17 11:37] VITALS: BP 135/74; PULSE 84
== END 2019-06-17 11:20 | disposition home or self-care (01) ==
LOC: JINFUSION 10:14
PROVIDERS: ATTEND Internal Medicine Infectious Disease
DX: M86.9 Osteomyelitis, unspecified (principal); E13.621 Other specified diabetes mellitus with foot ulcer; M86.672 Other chronic osteomyelitis, left ankle and foot
CPT/HCPCS: 82962; 96365; G0277

== ENCOUNTER 2019-06-18 09:12 | Day surgery (SDC) | payer OTHER ==
[2019-06-18] MEDS ORDERED: CEFTRIAXONE 2 GM in DEXTROSE 5%-WATER 100 ML IVPB ONE (09:30)
[2019-06-18] MEDS ORDERED: DEXTROSE 5%-WATER 100 ML IVPB ONE (09:54)
[2019-06-18 10:01] VITALS: TEMP 98.8
[2019-06-18 10:39] VITALS: BP 152/80; PULSE 85
== END 2019-06-18 10:42 | disposition home or self-care (01) ==
LOC: JINFUSION 09:12 → J7W 09:12 → JINFUSION 10:42
PROVIDERS: ATTEND Internal Medicine Infectious Disease
DX: M86.9 Osteomyelitis, unspecified (principal)
CPT/HCPCS: 96365

== ENCOUNTER 2019-06-19 09:04 | Day surgery (SDC) | payer OTHER ==
[2019-06-19] MEDS ORDERED: CEFTRIAXONE 2 GM in DEXTROSE 5%-WATER 100 ML IVPB ONE (09:30)
[2019-06-19] MEDS ORDERED: DEXTROSE 5%-WATER 100 ML IVPB ONE (09:31)
[2019-06-19 10:19] VITALS: BP 159/78; PULSE 82; TEMP 98
== END 2019-06-19 10:19 | disposition home or self-care (01) ==
LOC: JINFUSION 09:04 → J7W 09:05 → JINFUSION 10:19
PROVIDERS: ATTEND Internal Medicine Infectious Disease
DX: M86.9 Osteomyelitis, unspecified (principal)
CPT/HCPCS: 96365; 96367

== ENCOUNTER 2019-06-20 09:07 | Day surgery (SDC) | payer OTHER ==
[~2019-06-20 09:07] MED LIST changes: +CEFTRIAXONE 2 GM in DEXTROSE 5%-WATER - 100 ML IVPB ONE; -CEFTRIAXONE 2 GM in DEXTROSE 5%-WATER 100 ML IVPB ONE
[2019-06-20 16:15] VITALS: BP 137/84; PULSE 88; TEMP 98.4
== END 2019-06-20 10:20 | disposition home or self-care (01) ==
LOC: JINFUSION 09:07
PROVIDERS: ATTEND Internal Medicine Infectious Disease
DX: M86.9 Osteomyelitis, unspecified (principal)
CPT/HCPCS: 82962; 96365; G0277

== ENCOUNTER 2019-06-21 12:00 | Day surgery (SDC) | payer OTHER ==
[~2019-06-21 12:00] MED LIST changes: -CEFTRIAXONE 2 GM in DEXTROSE 5%-WATER - 100 ML IVPB ONE; +cefTRIAXone 2 GM/100 ML BAG (PRE-DOCKED) IVPB ONE
[2019-06-21 16:00] VITALS: PULSE 85; TEMP 98.3
[2019-06-21 16:03] VITALS: BP 147/75
== END 2019-06-21 15:25 | disposition home or self-care (01) ==
LOC: JINFUSION 12:00
PROVIDERS: ATTEND Internal Medicine Infectious Disease
DX: M86.9 Osteomyelitis, unspecified (principal); E13.621 Other specified diabetes mellitus with foot ulcer; M86.672 Other chronic osteomyelitis, left ankle and foot; Z79.4 Long term (current) use of insulin
CPT/HCPCS: 11042; 15275; 82962; 96365; G0277; Q4196

== ENCOUNTER 2019-06-22 10:13 | Day surgery (SDC) | payer OTHER ==
[~2019-06-22 10:13] MED LIST changes: +CEFTRIAXONE 2 GM in SODIUM CHLORIDE 100 ML IVPB ONE; -cefTRIAXone 2 GM/100 ML BAG (PRE-DOCKED) IVPB ONE
[2019-06-22 13:39] VITALS: TEMP 98.2
[2019-06-22 13:41] VITALS: BP 133/77; PULSE 83
== END 2019-06-22 11:35 | disposition home or self-care (01) ==
LOC: JINFUSION 10:13
PROVIDERS: ATTEND Internal Medicine Infectious Disease
DX: M86.9 Osteomyelitis, unspecified (principal); E13.621 Other specified diabetes mellitus with foot ulcer; M86.672 Other chronic osteomyelitis, left ankle and foot; Z79.4 Long term (current) use of insulin
CPT/HCPCS: 82962; 96365; 96367; G0277

== ENCOUNTER 2019-06-23 09:11 | Day surgery (SDC) | payer OTHER ==
[2019-06-23] MEDS ORDERED: SODIUM CHLORIDE 100 ML IVPB ONE (09:25)
[2019-06-23 09:35] VITALS: TEMP 98.4
[2019-06-23] MEDS ORDERED: CEFTRIAXONE 2 GM in SODIUM CHLORIDE 100 ML IVPB ONE (10:00)
[2019-06-23 10:25] VITALS: BP 127/66; PULSE 93
== END 2019-06-23 10:23 | disposition home or self-care (01) ==
LOC: JINFUSION 09:11
PROVIDERS: ATTEND Internal Medicine Infectious Disease
DX: M86.9 Osteomyelitis, unspecified (principal)
CPT/HCPCS: 82962; 96365; G0277

== ENCOUNTER 2019-06-24 09:53 | Day surgery (SDC) | payer OTHER ==
[2019-06-24 11:21] VITALS: TEMP 99.2
[2019-06-24 11:23] VITALS: BP 125/70; PULSE 86
== END 2019-06-24 11:24 | disposition home or self-care (01) ==
LOC: JINFUSION 09:53
PROVIDERS: ATTEND Internal Medicine Infectious Disease
DX: M86.9 Osteomyelitis, unspecified (principal); E13.621 Other specified diabetes mellitus with foot ulcer; M86.672 Other chronic osteomyelitis, left ankle and foot; Z79.4 Long term (current) use of insulin
CPT/HCPCS: 82962; 96365; G0277

== ENCOUNTER 2019-06-25 09:08 | Day surgery (SDC) | payer OTHER ==
[2019-06-25] MEDS ORDERED: CEFTRIAXONE 2 GM in SODIUM CHLORIDE 100 ML IVPB ONE (09:30)
[2019-06-25] MEDS ORDERED: SODIUM CHLORIDE 100 ML IVPB ONE (09:45)
[2019-06-25 11:14] VITALS: BP 141/75; PULSE 81; TEMP 97.9
== END 2019-06-25 11:18 | disposition home or self-care (01) ==
LOC: JINFUSION 09:08 → J7W 09:09 → JINFUSION 11:18
PROVIDERS: ATTEND Internal Medicine Infectious Disease
DX: M86.9 Osteomyelitis, unspecified (principal)
CPT/HCPCS: 96365

== ENCOUNTER 2019-06-26 09:14 | Day surgery (SDC) | payer OTHER ==
[2019-06-26] MEDS ORDERED: CEFTRIAXONE 2 GM in DEXTROSE 5%-WATER 100 ML IVPB ONE (10:15)
[2019-06-26] MEDS ORDERED: DEXTROSE 5%-WATER 100 ML IVPB ONE (10:20)
[2019-06-26 11:29] VITALS: BMI 27.6
[2019-06-26 11:35] VITALS: BP 134/85; PULSE 83; TEMP 98.9
== END 2019-06-26 11:15 | disposition home or self-care (01) ==
LOC: J7W 09:14 → JINFUSION 09:14
PROVIDERS: ATTEND Internal Medicine Infectious Disease
DX: M86.9 Osteomyelitis, unspecified (principal)
CPT/HCPCS: 96365

== ENCOUNTER 2019-06-27 09:29 | Day surgery (SDC) | payer OTHER ==
[2019-06-27] MEDS ORDERED: CEFTRIAXONE 2 GM in SODIUM CHLORIDE 100 ML IVPB ONE (10:00)
[2019-06-27 10:54] VITALS: TEMP 98.1
[2019-06-27 10:55] VITALS: BP 141/74; PULSE 92
== END 2019-06-27 10:56 | disposition home or self-care (01) ==
LOC: JINFUSION 09:29
PROVIDERS: ATTEND Internal Medicine Infectious Disease
DX: M86.9 Osteomyelitis, unspecified (principal)
CPT/HCPCS: 82962; 96365; G0277

== ENCOUNTER 2019-06-28 14:33 | Day surgery (SDC) | payer OTHER ==
[2019-06-28 15:39] VITALS: BP 152/93; PULSE 94; TEMP 98.6
== END 2019-06-28 15:41 | disposition home or self-care (01) ==
LOC: JINFUSION 14:33
PROVIDERS: ATTEND Internal Medicine Infectious Disease
DX: M86.9 Osteomyelitis, unspecified (principal)
CPT/HCPCS: 11042; 15275; 82962; 96365; G0277; Q4160

== ENCOUNTER 2019-06-29 09:55 | Day surgery (SDC) | payer OTHER ==
[2019-06-29] MEDS ORDERED: CEFTRIAXONE 2 GM in SODIUM CHLORIDE 100 ML IVPB ONE (10:00)
[2019-06-29] MEDS ORDERED: SODIUM CHLORIDE 100 ML IVPB ONE (10:22)
[2019-06-29 10:42] LABS: HEMOGLOBIN 11.3 GM/dL (10.7-15.3); MCH 25.8 pg (25.7-33.7); MCHC 32.3 g/dl (32.0-36.0); MEAN CELL VOLUME 79.7 fl (80-96); MEAN PLT VOLUME 8.5 fl (7.5-11.1); PLATELET COUNT 221 K/MM3 (134-434); RBC 4.39 M/mm3 (3.60-5.2); RDW 14.4 % (11.6-15.6); WHITE BLOOD COUNT 6.8 K/mm3 (4.0-10.0)
[2019-06-29 10:57] VITALS: TEMP 98.4
[2019-06-29 11:15] LABS: ALBUMIN 3.6 g/dl (3.4-5.0); ALK PHOS 88 U/L (45-117); ANION GAP 7 MMOL/L (8-16); BILIRUBIN,TOTAL 0.2 mg/dL (0.2-1); BLOOD UREA NITROGEN 21.6 mg/dL (7-18); CALCIUM 9.1 mg/dL (8.5-10.1); CHLORIDE 108 mmol/L (98-107); CO2 24 mmol/L (21-32); GLUCOSE,RANDOM 287 mg/dL (74-106); POTASSIUM 5.5 mmol/L (3.5-5.1); SGOT/AST 18 U/L (15-37); SGPT/ALT 26 U/L (13-61); SODIUM 139 mmol/L (136-145); TOT PROT 7.1 g/dl (6.4-8.2)
[2019-06-29 11:20] VITALS: BP 134/87; PULSE 95
[2019-06-29 11:58] LABS: ERYTHROCYTE SEDIMENTATION RATE 14 mm/hr (0-30)
== END 2019-06-29 11:20 | disposition home or self-care (01) ==
LOC: JINFUSION 09:55
PROVIDERS: ATTEND Internal Medicine Infectious Disease
DX: M86.9 Osteomyelitis, unspecified (principal)
CPT/HCPCS: 36415; 80053; 82962; 85027; 85651; 86140; 96365; G0277

== ENCOUNTER 2019-06-30 08:59 | Day surgery (SDC) | payer OTHER ==
[2019-06-30] MEDS ORDERED: CEFTRIAXONE 2 GM in SODIUM CHLORIDE 100 ML IVPB ONE (09:00)
[2019-06-30 11:41] VITALS: BP 142/76; PULSE 85; TEMP 98.2
== END 2019-06-30 10:15 | disposition home or self-care (01) ==
LOC: JINFUSION 08:59
PROVIDERS: ATTEND Internal Medicine Infectious Disease
DX: M86.9 Osteomyelitis, unspecified (principal)
CPT/HCPCS: 82962; 96365; G0277

== ENCOUNTER 2019-07-01 09:59 | Day surgery (SDC) | payer OTHER ==
[~2019-07-01 09:59] MED LIST changes: +CEFTRIAXONE 2 GM in DEXTROSE 5%-WATER 100 ML IVPB ONE; -CEFTRIAXONE 2 GM in SODIUM CHLORIDE 100 ML IVPB ONE
[2019-07-01] MEDS ORDERED: SODIUM CHLORIDE 100 ML IVPB ONE (10:26)
[2019-07-01 11:37] VITALS: TEMP 99.5
[2019-07-01 11:39] VITALS: BP 117/70; PULSE 89
== END 2019-07-01 11:52 | disposition home or self-care (01) ==
LOC: JINFUSION 09:59
PROVIDERS: ATTEND Internal Medicine Infectious Disease
DX: M86.9 Osteomyelitis, unspecified (principal)
CPT/HCPCS: 96365

== ENCOUNTER 2021-03-09 08:54 | Observation (INO) | payer OTHER ==
[2021-03-09 10:08] LABS: BASO % 0.9 % (0-2.0); EOS % 1.5 % (0-4.5); HEMATOCRIT 38.1 % (32.4-45.2); HEMOGLOBIN 12.6 GM/dl (10.7-15.3); LYMPH % 23.8 % (8-40); MCH 26.1 pg (25.7-33.7); MEAN PLT VOLUME 8.5 fl (7.5-11.1); MONO % 7.6 % (3.8-10.2); NEUT % 66.2 % (42.8-82.8); PLATELET COUNT 217 10^3/uL (134-434); RBC 4.82 M/mm3 (3.60-5.2); RDW 14.1 % (11.6-15.6)
[2021-03-09 10:17] LABS: INR 0.91 (0.82-1.09); PROTHROMBIN TIME (PATIENT) 10.2 SEC (10.2-13.0)
[2021-03-09 10:25] LABS: ALBUMIN 4.2 g/dl (3.4-5.0); BILIRUBIN,TOTAL 0.5 mg/dl (0.2-1); CALCIUM 9.5 mg/dl (8.5-10); TOT PROT 7.1 g/dl (6.4-8.2)
[2021-03-09 10:33] LABS: EPITHELIAL CELLS RARE /hpf
[2021-03-09 12:11] LABS: N-TERMINAL BNP 201.8 pg/ml (5-125)
[2021-03-09] MEDS ORDERED: ENOXAPARIN NA (PORCINE) 60 MG/0.6 ML DISP.SYRIN SQ ONE (15:00)
[2021-03-09] MEDS: ENOXAPARIN NA (PORCINE) 40 MG/0.4 ML DISP.SYRIN SQ SCH (15:00)
[2021-03-09 16:14] VITALS: BMI 24.1
[2021-03-09] MEDS: ASPIRIN COATED 81 MG TABLET.EC PO SCH (16:40)
[2021-03-09] MEDS: INSULIN SLIDING SCALE (NOVOLOG) 1 VIAL SQ SCH ×2 (17:22→22:39)
[2021-03-09] MEDS ORDERED: ATORVASTATIN CA 40 MG TABLET (FP) PO SCH (22:00)
[2021-03-09] MEDS ORDERED: INSULIN (LEVEMIR) 100 UNITS/ML UNITS SQ SCH (22:00)
[2021-03-10] MEDS: INSULIN SLIDING SCALE (NOVOLOG) 1 VIAL SQ SCH (06:52)
[2021-03-10 07:04] VITALS: TEMP 98.4
[2021-03-10 08:26] LABS: CALCIUM 9.1 mg/dl (8.5-10); CREATININE 0.9 mg/dl (0.55-1.3)
[2021-03-10 09:25] LABS: CHOLESTEROL 218 mg/dl (50-200); HDL CHOLESTEROL 64 mg/dl (40-60); LDL CHOLESTEROL (ONLY DFH) 130 mg/dl (5-100); TRIGLYCERIDES 121 mg/dl (0-150)
[2021-03-10] MEDS: ENOXAPARIN NA (PORCINE) 40 MG/0.4 ML DISP.SYRIN SQ SCH (09:48)
[2021-03-10] MEDS: ASPIRIN COATED 81 MG TABLET.EC PO SCH (09:49)
[2021-03-10] MEDS ORDERED: SERTRALINE HCL 50 MG TABLET (FP) PO SCH (10:00)
[2021-03-10] MEDS ORDERED: LISINOPRIL 5 MG TABLET PO SCH (10:00)
[2021-03-10] MEDS ORDERED: PANTOPRAZOLE 20 MG TABLET PO SCH (10:00)
[2021-03-10 10:01] VITALS: BP 121/60; PULSE 66
== END 2021-03-10 11:15 | disposition home or self-care (01) ==
LOC: FER 08:54 → INTOOBSV 14:04 → FM/S 14:04 → UNDOADMOB 14:04 → FM/S 14:32
PROVIDERS: ADMIT Student in an Organized Health Care Education/Training Program; ATTEND Nurse Practitioner Family
PROC: 3E023GC Introduction of Other Therapeutic Substance into Muscle, Percutaneous Approach (ICD-10-PCS; principal; 2021-03-09)
PROC: 3E013VG Introduction of Insulin into Subcutaneous Tissue, Percutaneous Approach (ICD-10-PCS; 2021-03-09)
DX: I10 Essential (primary) hypertension (principal); E11.9 Type 2 diabetes mellitus without complications; K21.9 Gastro-esophageal reflux disease without esophagitis; Z79.4 Long term (current) use of insulin; F32.9 Major depressive disorder, single episode, unspecified; E78.00 Pure hypercholesterolemia, unspecified; I45.10 Unspecified right bundle-branch block; L03.116 Cellulitis of left lower limb; Z96.653 Presence of artificial knee joint, bilateral; M19.90 Unspecified osteoarthritis, unspecified site
CPT/HCPCS: 36415; 71045-TC-FY; 71250-TC; 80048; 80053; 80061; 81003; 81015; 82550; 82962; 83036; 83735; 83880; 84484; 85025; 85610; 87077; 87086; 93005; 96372; 99285-25; C9803; G0378; U0003; U0005

== ENCOUNTER 2022-05-12 15:40 | Observation (INO) | payer OTHER ==
[2022-05-12 15:58] VITALS: BMI 26.4
[2022-05-12 17:31] LABS: HEMATOCRIT 36.1 % (32.4-45.2); HEMOGLOBIN 12.6 G/dL (10.7-15.3); MCH 27.8 pg (25.7-33.7); MCHC 34.8 g/dl (32.0-36.0); PLATELET COUNT 232.4 10^3/uL (134-434); RBC 4.51 10^6/uL (3.60-5.2); RDW 15.6 % (11.6-15.6); WHITE BLOOD COUNT 9.4 10^3/uL (4.0-10.8)
[2022-05-12 17:35] LABS: EPITHELIAL CELLS FEW /hpf
[2022-05-12 17:48] LABS: ALBUMIN 4.2 g/dl (3.4-5.0); CALCIUM 9.9 mg/dl (8.5-10); CREATININE 0.9 mg/dl (0.55-1.3); TOT PROT 7.3 g/dl (6.4-8.2)
[2022-05-12 17:58] LABS: PLATELET ESTIMATE ADEQUATE
[2022-05-12] MEDS: ENOXAPARIN NA (PORCINE) 40 MG/0.4 ML DISP.SYRIN SQ SCH (21:40)
[2022-05-13] MEDS: INSULIN SLIDING SCALE (NOVOLOG) 1 VIAL SQ SCH ×4 (06:44→21:12)
[2022-05-13 08:19] LABS: HEMATOCRIT 37.3 % (32.4-45.2); HEMOGLOBIN 12.6 G/dL (10.7-15.3); MCH 27.2 pg (25.7-33.7); MCHC 33.7 g/dl (32.0-36.0); MEAN CELL VOLUME 80.5 fl (80-96); MEAN PLT VOLUME 8.9 fl (7.5-11.1); PLATELET COUNT 226.9 10^3/uL (134-434); RBC 4.63 10^6/uL (3.60-5.2); RDW 15.5 % (11.6-15.6); WHITE BLOOD COUNT 5.9 10^3/uL (4.0-10.8)
[2022-05-13 08:24] LABS: CALCIUM 9.2 mg/dl (8.5-10); CREATININE 0.9 mg/dl (0.55-1.3)
[2022-05-13] MEDS ORDERED: LISINOPRIL 10 MG TABLET PO SCH (10:00)
[2022-05-13] MEDS: ENOXAPARIN NA (PORCINE) 40 MG/0.4 ML DISP.SYRIN SQ SCH (10:14)
[2022-05-13] MEDS: SERTRALINE HCL 50 MG TABLET (FP) PO SCH (10:14)
[2022-05-13] MEDS: PANTOPRAZOLE 40 MG TABLET PO SCH (10:14)
[2022-05-13] MEDS: ASPIRIN COATED 81 MG TABLET.EC PO SCH (10:14)
[2022-05-13 10:43] LABS: N-TERMINAL BNP 175.8 pg/ml (5-125)
[2022-05-13] MEDS: ATORVASTATIN CA 40 MG TABLET (FP) PO SCH (21:09)
[2022-05-14] MEDS: INSULIN SLIDING SCALE (NOVOLOG) 1 VIAL SQ SCH ×3 (07:07→21:14)
[2022-05-14] MEDS: ASPIRIN COATED 81 MG TABLET.EC PO SCH (09:23)
[2022-05-14] MEDS: PANTOPRAZOLE 40 MG TABLET PO SCH (09:23)
[2022-05-14] MEDS: SERTRALINE HCL 50 MG TABLET (FP) PO SCH (09:23)
[2022-05-14] MEDS: ENOXAPARIN NA (PORCINE) 40 MG/0.4 ML DISP.SYRIN SQ SCH (09:23)
[2022-05-14] MEDS: ATORVASTATIN CA 40 MG TABLET (FP) PO SCH (21:09)
[2022-05-15 06:43] VITALS: RESP 18; TEMP 98.2
[2022-05-15] MEDS: INSULIN SLIDING SCALE (NOVOLOG) 1 VIAL SQ SCH ×4 (07:23→11:55)
[2022-05-15 09:22] VITALS: BP 132/63; PULSE 87
[2022-05-15] MEDS: ENOXAPARIN NA (PORCINE) 40 MG/0.4 ML DISP.SYRIN SQ SCH (09:36)
[2022-05-15] MEDS: SERTRALINE HCL 50 MG TABLET (FP) PO SCH (09:36)
[2022-05-15] MEDS: ASPIRIN COATED 81 MG TABLET.EC PO SCH (09:36)
[2022-05-15] MEDS: PANTOPRAZOLE 40 MG TABLET PO SCH (09:36)
[2022-05-15] MEDS ORDERED: LORATADINE 10 MG TABLET PO SCH (11:00)
== END 2022-05-15 13:42 | disposition home or self-care (01) ==
LOC: SUPCPDRO 15:40 → FER 15:40 → FM/S 18:15
PROVIDERS: ADMIT Family Medicine
PROC: 3E023GC Introduction of Other Therapeutic Substance into Muscle, Percutaneous Approach (ICD-10-PCS; principal; 2022-05-12)
PROC: 3E013VG Introduction of Insulin into Subcutaneous Tissue, Percutaneous Approach (ICD-10-PCS; 2022-05-12)
DX: I10 Essential (primary) hypertension (principal); E78.5 Hyperlipidemia, unspecified; E11.9 Type 2 diabetes mellitus without complications; M86.9 Osteomyelitis, unspecified; R29.6 Repeated falls; F32.A Depression, unspecified; R53.1 Weakness; Z96.653 Presence of artificial knee joint, bilateral
CPT/HCPCS: 36415; 70450-TC; 70551-TC; 71045-TC-FY; 72125-TC; 72141-TC; 72170-TC-FY; 80048; 80053; 80061; 81003; 81015; 82607; 82962; 83036; 83880; 84443; 84484; 85027; 85379; 87086; 87186; 93005; 93306-TC; 93880-TC; 96372; 97116-GP; 97162-GP; 99285-25; C9803-CS; G0378; U0003; U0005

== ENCOUNTER 2023-03-03 12:37 | Emergency (ER) | payer OTHER ==
[2023-03-03 12:43] VITALS: BP 108/63; PULSE 68; RESP 18; TEMP 98.9; BMI 22.6
[2023-03-03] MEDS ORDERED: SODIUM CHLORIDE 1,000 ML IV STA (14:17)
[2023-03-03] MEDS ORDERED: ACETAMINOPHEN 1000 MG/100 ML BAG IVPB ONE (14:17)
[2023-03-03] MEDS ORDERED: FAMOTIDINE 20 MG/50 ML IVPB 20 MG/50 ML MG IVPB ONE ×2 (14:17→14:27)
[2023-03-03] MEDS ORDERED: ONDANSETRON 4 MG/2 ML VIAL IVPUSH ONE (14:17)
[2023-03-03] MEDS ORDERED: ACETAMINOPHEN INJECTION 100 ML IVPB ONE (14:27)
[2023-03-03] MEDS ORDERED: ONDANSETRON 4 MG/2 ML VIAL ONE (14:27)
[2023-03-03 14:53] LABS: BASO % 0.6 % (0-2.0); EOS % 0.8 % (0-4.5); HEMATOCRIT 33.6 % (32.4-45.2); LYMPH % 25.9 % (8-40); MCH 25.1 pg (25.7-33.7); MCHC 32.6 g/dl (32.0-36.0); MEAN CELL VOLUME 76.9 fl (80-96); NEUT % 65.7 % (42.8-82.8); PLATELET COUNT 195 10^3/uL (134-434); RBC 4.37 M/mm3 (3.60-5.2); RDW 15.2 % (11.6-15.6); WHITE BLOOD COUNT 5.9 K/mm3 (4.0-10.0)
[2023-03-03 15:11] LABS: POTASSIUM 4.5 mmol/L (3.5-5.1)
[2023-03-03 15:13] LABS: CALCIUM 9.5 mg/dL (8.5-10.1)
[2023-03-03 15:14] LABS: ALBUMIN 3.6 g/dl (3.4-5.0); BLOOD UREA NITROGEN 25.6 mg/dL (7-18); INR 1.05 (0.83-1.09); PROTHROMBIN TIME (PATIENT) 12.2 SEC (9.7-13.0)
[2023-03-03 15:17] LABS: ACTIVATED PTT 32.1 SECONDS (25.2-36.5)
[2023-03-03 15:18] LABS: BILIRUBIN,TOTAL 0.4 mg/dL (0.2-1); TOT PROT 6.5 g/dl (6.4-8.2)
[2023-03-03 15:19] LABS: PH,URINE 7.5 (5.0-8.0); URINE APPEARANCE CLEAR; URINE BILIRUBIN NEGATIVE (NEGATIVE); URINE COLOR YELLOW; URINE GLUCOSE (UA) 3+ (NEGATIVE); URINE KETONE NEGATIVE (NEGATIVE); URINE LEUK ESTERASE NEGATIVE (NEGATIVE); URINE NITRITE NEGATIVE (NEGATIVE); URINE PROTEIN NEGATIVE (NEGATIVE); URINE UROBILINOGEN 0.2 mg/dL (0.2-1.0)
== END 2023-03-03 17:33 | disposition home or self-care (01) ==
LOC: JER 12:37
PROC: 3E033GC Introduction of Other Therapeutic Substance into Peripheral Vein, Percutaneous Approach (ICD-10-PCS; principal; 2023-03-03)
PROC: 3E033NZ Introduction of Analgesics, Hypnotics, Sedatives into Peripheral Vein, Percutaneous Approach (ICD-10-PCS; 2023-03-03)
PROC: 3E033GC Introduction of Other Therapeutic Substance into Peripheral Vein, Percutaneous Approach (ICD-10-PCS; 2023-03-03)
DX: R19.7 Diarrhea, unspecified (principal); R11.2 Nausea with vomiting, unspecified; R10.84 Generalized abdominal pain; L29.9 Pruritus, unspecified; R53.1 Weakness; R68.83 Chills (without fever); R07.9 Chest pain, unspecified; R63.8 Other symptoms and signs concerning food and fluid intake; R42 Dizziness and giddiness
CPT/HCPCS: 36415; 71046-TC-FY; 74177-TC; 80053; 81003; 83690; 84484; 85025; 85610; 85730; 87086; 93005; 93010; 99285-25

== ENCOUNTER 2023-05-05 07:41 | Emergency (ER) | payer OTHER ==
[2023-05-05 07:48] VITALS: RESP 20; TEMP 97.6; BMI 22.4
[2023-05-05] MEDS ORDERED: SODIUM CHLORIDE 0.9% 1000 ML INFUS.BAG IV ONE (08:24)
[2023-05-05] MEDS ORDERED: ONDANSETRON 4 MG/2 ML VIAL IVPUSH ONE (08:24)
[2023-05-05] MEDS ORDERED: FAMOTIDINE 20 MG/50 ML IVPB 20 MG/50 ML MG IVPB ONE ×2 (08:24→08:31)
[2023-05-05] MEDS ORDERED: ONDANSETRON 4 MG/2 ML VIAL ONE (08:31)
[2023-05-05 08:39] LABS: HEMATOCRIT 35.4 % (32.4-45.2); HEMOGLOBIN 11.6 G/dL (10.7-15.3); MCH 25.8 pg (25.7-33.7); MCHC 32.8 g/dl (32.0-36.0); MEAN CELL VOLUME 78.7 fl (80-96); MEAN PLT VOLUME 8.3 fl (7.5-11.1); PLATELET COUNT 195.8 10^3/uL (134-434); RDW 16.7 % (11.6-15.6); WHITE BLOOD COUNT 5.1 10^3/uL (4.0-10.8)
[2023-05-05 09:14] LABS: ALBUMIN 4.1 g/dl (3.4-5.0); BLOOD UREA NITROGEN 21.9 mg/dl (7-18); CALCIUM 10.2 mg/dl (8.5-10.1); CREATININE 0.8 mg/dl (0.6-1.3); POTASSIUM 5.2 mmol/L (3.5-5.1); SGOT/AST 15.8 U/L (15-37); SGPT/ALT 12.2 U/L (7-52); TOT PROT 6.4 g/dl (6.4-8.2)
[2023-05-05 09:58] LABS: ANISOCYTOSIS 1+; PLATELET ESTIMATE ADEQUATE
[2023-05-05 09:59] LABS: EPITHELIAL CELLS FEW /hpf
[2023-05-05 10:31] LABS: BILIRUBIN,TOTAL 0.4 mg/dL (0.2-1)
[2023-05-05 10:56] VITALS: BP 106/55; PULSE 76
== END 2023-05-05 11:00 | disposition home or self-care (01) ==
LOC: FER 07:41
PROC: 3E033GC Introduction of Other Therapeutic Substance into Peripheral Vein, Percutaneous Approach (ICD-10-PCS; principal; 2023-05-05)
PROC: 3E033GC Introduction of Other Therapeutic Substance into Peripheral Vein, Percutaneous Approach (ICD-10-PCS; 2023-05-05)
DX: R19.7 Diarrhea, unspecified (principal); R11.0 Nausea; Z20.822 Contact with and (suspected) exposure to COVID-19
CPT/HCPCS: 0241U-QW; 36415; 80053; 81003; 81015; 85027; 99284-25

== ENCOUNTER 2023-10-10 16:33 | Emergency (ER) | payer OTHER ==
[2023-10-10] MEDS ORDERED: oxyCODONE HCL 5 MG TABLET PO ONE ×2 (16:55→22:27)
[2023-10-10] MEDS ORDERED: TETRACAINE 0.5% HCL 0.6ML DROPPER.BOTTLE OD ONE (16:56)
[2023-10-10 16:58] VITALS: TEMP 98.5; BMI 21.9
[2023-10-10] MEDS ORDERED: FLUORESCEIN NA 1 EA STRIP OD ONE (16:58)
[2023-10-10] MEDS ORDERED: oxyCODONE HCL 5 MG TABLET ONE ×2 (18:00→22:28)
[2023-10-10] MEDS ORDERED: TETANUS AND DIPHTHERIA TOXOID 0.5 ML DISP.SYRIN IM ONE ×2 (22:23→22:27)
[2023-10-10 22:30] VITALS: BP 99/56; PULSE 68; RESP 15
== END 2023-10-10 23:28 | disposition short-term general hospital (02) ==
LOC: FER 16:33
PROC: 3E0234Z Introduction of Serum, Toxoid and Vaccine into Muscle, Percutaneous Approach (ICD-10-PCS; principal; 2023-10-10)
DX: S05.91XA Unspecified injury of right eye and orbit, initial encounter (principal); H57.11 Ocular pain, right eye; H53.8 Other visual disturbances; R51.9 Headache, unspecified; W01.198A Fall on same level from slipping, tripping and stumbling with subsequent striking against other object, initial encounter; Z20.822 Contact with and (suspected) exposure to COVID-19
CPT/HCPCS: 0241U-QW; 70450-TC; 70480-TC; 72125-TC; 82962; 99285-25

== ENCOUNTER 2024-05-22 20:51 | Inpatient (IN) | payer OTHER ==
[2024-05-22 21:02] VITALS: BMI 19.8
[2024-05-22 21:39] LABS: VENOUS BASE EXCESS 2.4 mmol/L (-2-2); VENOUS O2 SATURATION 21.2 % (70-80); VENOUS PCO2 26.3 mmHg (38-52)
[2024-05-22 21:39] LABS: BASO % 0.8 % (0-2.0); EOS % 0.8 % (0-4.5); HEMATOCRIT 33.2 % (32.4-45.2); HEMOGLOBIN 10.9 GM/dL (10.7-15.3); LYMPH % 19.2 % (8-40); MCH 23.6 pg (25.7-33.7); MCHC 32.7 g/dl (32.0-36.0); MEAN CELL VOLUME 72.2 fl (80-96); MEAN PLT VOLUME 7.9 fl (7.5-11.1); MONO % 9.2 % (3.8-10.2); PLATELET COUNT 287 10^3/uL (134-434); WHITE BLOOD COUNT 8.1 K/mm3 (4.0-10.0)
[2024-05-22 21:46] LABS: POTASSIUM 4.6 mmol/L (3.5-5.1)
[2024-05-22 21:48] LABS: ACTIVATED PTT 32.9 SECONDS (25.2-36.5); PROTHROMBIN TIME (PATIENT) 11.3 SEC (9.7-13.0)
[2024-05-22 21:48] LABS: CALCIUM 9.2 mg/dL (8.5-10.1)
[2024-05-22 21:49] LABS: ALBUMIN 3.5 g/dl (3.4-5.0)
[2024-05-22 21:52] LABS: CREATININE 0.9 mg/dL (0.55-1.3)
[2024-05-22 21:53] LABS: BILIRUBIN,TOTAL 0.4 mg/dL (0.2-1)
[2024-05-22 22:28] LABS: EPI CELLS 4 /uL (0-25.1); HYALINE CASTS 0 /uL (0-3.1); URINE APPEARANCE CLEAR; URINE BACTERIA 56 /uL (0-1359); URINE BILIRUBIN NEGATIVE (NEGATIVE); URINE COLOR YELLOW; URINE GLUCOSE (UA) 3+ (NEGATIVE); URINE KETONE NEGATIVE (NEGATIVE); URINE LEUK ESTERASE TRACE (NEGATIVE); URINE NITRITE NEGATIVE (NEGATIVE); URINE PROTEIN NEGATIVE (NEGATIVE); URINE RBC 7 /uL (0-23.9); URINE UROBILINOGEN 0.2 mg/dL (0.2-1.0); URINE WBC 16 /uL (0-25.8)
[2024-05-23] MEDS ORDERED: DEXAMETHASONE SOD PHOSPHATE 4 MG/1 ML VIAL ONE (00:15)
[2024-05-23] MEDS: DEXAMETHASONE SOD PHOSPHATE 4 MG/1 ML VIAL IVPUSH ONE (00:27)
[2024-05-23] MEDS: DEXAMETHASONE SOD PHOSPHATE 10 MG/1 ML VIAL IVPUSH ONE (02:26)
[2024-05-23] MEDS: PANTOPRAZOLE SODIUM 40 MG VIAL IVPUSH ONE (02:28)
[2024-05-23] MEDS: DEXAMETHASONE SOD PHOSPHATE 4 MG/1 ML VIAL IVPUSH SCH (02:33)
[2024-05-23] MEDS: INSULIN ASPART SLIDING SCALE (NOVOLOG) 1 VIAL SQ SCH ×2 (02:41→17:32)
[2024-05-23] MEDS: INSULIN (LEVEMIR) 100 UNITS/ML UNITS SQ ONE (06:29)
[2024-05-23] MEDS: SODIUM CHLORIDE 0.9% 500 ML INFUS.BAG IV ONE (07:36)
[2024-05-23 08:00] LABS: BASO % 0.3 % (0-2.0); HEMATOCRIT 33.2 % (32.4-45.2); HEMOGLOBIN 10.6 GM/dL (10.7-15.3); LYMPH % 9.1 % (8-40); MCH 23.2 pg (25.7-33.7); MEAN CELL VOLUME 72.7 fl (80-96); MONO % 1.8 % (3.8-10.2); NEUT % 88.8 % (42.8-82.8); PLATELET COUNT 290 10^3/uL (134-434); RBC 4.58 M/mm3 (3.60-5.2); RDW 15.8 % (11.6-15.6); WHITE BLOOD COUNT 6.2 K/mm3 (4.0-10.0)
[2024-05-23 08:16] LABS: POTASSIUM 4.7 mmol/L (3.5-5.1)
[2024-05-23 08:24] LABS: CREATININE 0.8 mg/dL (0.55-1.3)
[2024-05-23 08:26] LABS: BILIRUBIN,TOTAL 0.4 mg/dL (0.2-1); TOT PROT 6.8 g/dl (6.4-8.2)
[2024-05-23 08:30] LABS: ALBUMIN 3.4 g/dl (3.4-5.0)
[2024-05-23 08:31] LABS: BLOOD UREA NITROGEN 17.3 mg/dL (7-18); CALCIUM 9.4 mg/dL (8.5-10.1); MAGNESIUM 2.3 mg/dL (1.8-2.4)
[2024-05-23] MEDS: PANTOPRAZOLE SODIUM 40 MG VIAL IVPUSH SCH (09:20)
[2024-05-23] MEDS: SERTRALINE HCL 50 MG TABLET (FP) PO SCH (09:20)
[2024-05-23] MEDS: LISINOPRIL 10 MG TABLET PO SCH (09:20)
[2024-05-23 09:51] LABS: HIV INTERPRETATION NEGATIVE (NEGATIVE)
[2024-05-23] MEDS ORDERED: INSULIN (LEVEMIR) 100 UNITS/ML UNITS SQ SCH (22:00)
[2024-05-23] MEDS: ATORVASTATIN CA 40 MG TABLET (FP) PO SCH (23:07)
[2024-05-23] MEDS: DONEPEZIL HCL 10 MG TABLET (FP) PO SCH (23:07)
[2024-05-23] MEDS: INSULIN (LEVEMIR) 100 UNITS/ML UNITS SQ SCH (23:09)
[2024-05-24] MEDS ORDERED: INSULIN ASPART SLIDING SCALE (NOVOLOG) 1 VIAL SQ ONE (07:46)
[2024-05-24 08:27] LABS: HEMATOCRIT 33.4 % (32.4-45.2); HEMOGLOBIN 10.6 GM/dL (10.7-15.3); MCH 23.3 pg (25.7-33.7); MCHC 31.8 g/dl (32.0-36.0); MEAN CELL VOLUME 73.4 fl (80-96); MEAN PLT VOLUME 8.1 fl (7.5-11.1); PLATELET COUNT 315 10^3/uL (134-434); RBC 4.55 M/mm3 (3.60-5.2); RDW 16.1 % (11.6-15.6); WHITE BLOOD COUNT 7.9 K/mm3 (4.0-10.0)
[2024-05-24 08:50] LABS: POTASSIUM 4.5 mmol/L (3.5-5.1)
[2024-05-24 08:54] LABS: ALBUMIN 3.3 g/dl (3.4-5.0); BLOOD UREA NITROGEN 22.8 mg/dL (7-18); CALCIUM 9.3 mg/dL (8.5-10.1)
[2024-05-24 08:57] LABS: CREATININE 0.8 mg/dL (0.55-1.3)
[2024-05-24 08:58] LABS: BILIRUBIN,TOTAL 0.3 mg/dL (0.2-1)
[2024-05-24 08:59] LABS: TOT PROT 6.8 g/dl (6.4-8.2)
[2024-05-24 15:37] LABS: N-TERMINAL BNP 793.8 pg/ml (5-450)
[2024-05-25 04:04] VITALS: TEMP 98.2
[2024-05-25 06:11] VITALS: BP 127/72; PULSE 60; RESP 20
[2024-05-25] MEDS ORDERED: PANTOPRAZOLE 40 MG TABLET PO SCH (10:00)
== END 2024-05-25 07:20 | disposition short-term general hospital (02) | DRG 70 ==
LOC: JER 20:51 → JERBED 23:22 → J4W 05-23 02:19
PROVIDERS: ADMIT Internal Medicine; ATTEND Internal Medicine
DX: G93.89 Other specified disorders of brain (principal); G93.6 Cerebral edema; I47.29 Other ventricular tachycardia; E11.9 Type 2 diabetes mellitus without complications; I10 Essential (primary) hypertension; E78.5 Hyperlipidemia, unspecified; G81.91 Hemiplegia, unspecified affecting right dominant side
CPT/HCPCS: 0241U-QW; 36415; 70450-TC; 70553-TC; 71045-TC-FY; 71260-TC; 74177-TC; 80053; 80061; 81003; 82803; 82962; 83036; 83605; 83735; 83880; 84100; 84439; 84443; 84484; 85025; 85027; 85610; 85730; 87389; 93005; 93010; 93306-TC; 99285-25; Q9967